=== PATIENT | female | born 1945 | race Caucasian/White ===

== ENCOUNTER 2024-12-30 22:49 | Inpatient (IN) | payer OTHER ==
[~2024-12-30] VITALS: Ht 172.7 cm; Wt 85.5 kg
[~2024-12-30 22:49] MED LIST: AMIO200T33 PO; APIX5TAB PO; ASPI1TAB20 PO; ATOR20TA50 PO; DOXY-286 PO; FURO20TA3 PO; LISI20TA56 PO; METF-1145 PO; METO-289 PO; METO25TA5 PO
[2024-12-30 23:24] LABS: Base Excess -8.9 mmol/L (-2.0-3.0)
[2024-12-30 23:30] VITALS: PULSE 150; RESP 32; O2SAT 96
--- NOTE | 2024-12-30 23:41 | DVH ---
EXAMINATION: AP portable chest radiograph CLINICAL HISTORY: Shortness of breath COMPARISON: None available FINDINGS: Interstitial prominence. Enlarged cardiac silhouette. Bibasilar hazy opacities with blunting of the c ostophrenic angles. No definite pneumothorax. IMPRESSION: CHF type pattern with small bilateral pleural effusions and associated atelectasis. Correlate to excl ude concomitant infection.
[2024-12-30] MEDS: FUROSEMIDE 40 MG/4 ML VIAL IV ONE (23:56)
[2024-12-30] MEDS: METOPROLOL TARTRATE 1MG/1ML-5ML VIAL IV ONE (23:57)
[2024-12-31] VITALS (14 sets, daily range): BP systolic 94–114; BP diastolic 40–70; PULSE 68–143; RESP 16–22; TEMP 97.1–97.4; O2SAT 93–100
[2024-12-31 00:04] LABS: Basophils # (auto) 0.1 10 ^3/uL (0-0.2); Basophils % (auto) 0.6 % (0.0-2.0); Eosinophils # (auto) 0.1 10 ^3/uL (0-0.8); Hematocrit 38.4 % (36.0-46.0); Hemoglobin 11.9 g/dL (12.2-16.2); Lymphocytes # (auto) 2.3 10 ^3/uL (0.4-5.4); Lymphocytes % (auto) 25.3 % (10.0-50.0); Mean Corpuscular Hemoglobin 27.1 pg (28.0-32.0); Mean Corpuscular Hgb Conc. 31.1 g/dL (32.0-36.0); Mean Corpuscular Volume 87.3 fL (80.0-100.0); Monocytes # (auto) 0.6 10 ^3/uL (0-1.3); Monocytes % (auto) 6.8 % (0.0-12.0); Neutrophils # (auto) 6.1 10 ^3/uL (1.6-8.6); Neutrophils % (auto) 66.3 % (37.0-80.0); Nucleated Red Blood Cells % 0.2 %; Platelet Count (auto) 272 10^3/uL (140-450); Red Cell Distribution Width 16.9 % (11.8-14.3); White Blood Cell 9.3 10^3/uL (4.4-10.8)
[2024-12-31 00:24] LABS: Alanine Aminotransferase 16 U/L (7-40); Albumin 4.5 g/dL (3.2-4.8); Anion Gap 14 (5-15); Aspartate Aminotransferase 19 U/L (13-40); BUN/Creatinine Ratio 21.6 (10.0-20.0); Calcium 9.8 mg/dL (8.7-10.4); Chloride 106 mmol/L (98-107); Potassium 3.9 mmol/L (3.5-5.1); Sodium 139 mmol/L (136-145); Total Protein 7.4 g/dL (5.7-8.2)
--- NOTE | 2024-12-31 00:24 | ED.PDOC ---
SOB-HPI HPI Comments 79-year-old female who came to ER via EMS due to shortness of breath. Patient does have hypertension, diabetes, dyslipidemia, AFib, congestive heart failure. Patient has not been taking her Lasix for the past 2 days. Patient has been feeling short of breath for a week, which progressively worsened today associate d with chest discomfort, generalized weakness, and by pedal edema. Patient saturating on 96% on room air, with a blood sugar of 234. Chief Complaint: Shortness of Breath Time Seen by MD: 00:22 Primary Care Provider: Torrey Harper notes: Nurses Notes Information Source: Patient, Emergency Med Personnel Mode of Arrival: EMS Severity: Moderate Timing: Days Duration: Intermittent Context: At Rest, With Light Exertion History of: CHF Prehospital treatment: Oxygen Review of Systems REVIEW OF SYSTEMS: No fever, no chills, or fatigue HEENT: No sore throat, no earache, no congestion, no neck pain. Cardiac: (+) chest pain. No palpitations. Lungs: (+) shortness of breath, no cough. GI: No nausea, no vomiting, no diarrhea, no constipation, no abdominal pain : No dysuria, frequency, or urgency. No hematuria. Musculoskeletal: No joint pain , no joint swelling, no extremity edema. Skin: No rash, no itching. Neuro: No headache, no dizziness, (+) weakness Vital Signs Vital Signs Date Time Temp Pulse Resp B/P (MAP) Pulse Ox O2 Delivery O2 Flow Rate FiO2 12/31/24 00:24 172 12/30/24 23:57 130/79 12/30/24 22:56 98.6 16 96 98.6 Physical Exam General: Awake, alert and oriented. No acute distress. Skin: Skin in warm, dry and intact. Appropriate color for ethnicity. Nailbeds pink with no cyanosis. HEENT: The head is normocephalic and atraumatic. Conjunctivae are clear without exudates or hemorrhage. Sclera is non-icteric. EOM are intact. No signs of nystagmus. Eyelids are normal in appearance without swelling or lesions. Oral mucosa is pink and moist Neck: The neck is supple with normal range of motion. No JVD. Cardiac: Heart rate and rhythm are normal. No murmurs, gallops, or rubs are auscultated. Respiratory: No signs of respiratory distress. Lung sounds are clear in all lobes bilaterally without rales, ronchi, or wheezes. Abdominal: Abdomen is soft, non-tender without distention. Bowel sounds are present and normoactive in all four quadrants. Extremities: Upper and lower extremities are atraumatic in appearance without deformity or edema. Neurological: The patient is awake, alert and oriented to person, place, and time with normal speech. Speech is clear. There is no facial asymmetry. Psychiatric: Appropriate mood and affect. Good judgement and insight. No visual or auditory hallucinations. Past Medical History PAST MEDICAL HISTORY: AFIB, CHF, DM, High Lipids, HTN Surgical History: Denies all surgeries REMODELER History: Denies all REMODELER Hx Family History Family History: Reviewed,noncontributory to illness Social History Smoker: Non-Smoker Alcohol: Denies ETOH Use Drugs: Denies Drug Use Lives In: Home EKG EKG : Pulse Rate (adult): 172 Block: LBBB Comments Wide QRS tachycardia, Ventricular Premature Complex Was a procedure done? Was a procedure done?: No Differential Dx Differential Diagnosis: Asthma, Bronchitis, CHF, COPD, Myocardial infarction, Panic Attack, Pneumonia, Respiratory Distress X-Ray, Labs, Meds, VS Vital Signs Date Time Temp Pulse Resp B/P (MAP) Pulse Ox O2 Delivery O2 Flow Rate FiO2 12/31/24 00:24 172 12/31/24 00:09 145 12/30/24 23:57 181 130/79 12/30/24 23:56 130/79 12/30/24 23:06 172 12/30/24 22:56 98.6 165 16 137/90 (106) 96 98.6 Lab Test 12/31/24 01:30 12/31/24 00:42 12/30/24 23:42 12/30/24 23:11 Range/Units Lactic Acid Level Pending 5.1 *H 0.4-2.0 mmol/L Troponin I High Sensitivity 51 *H 48 *H </=34 ng/L White Blood Count 9.3 4.4-10.8 10^3/uL Red Blood Count 4.40 4.0-5.20 10^6/uL Hemoglobin 11.9 L 12.2-16.2 g/dL Hematocrit 38.4 36.0-46.0 % Mean Corpuscular Volume 87.3 80.0-100.0 fL Mean Corpuscular Hemoglobin 27.1 L 28.0-32.0 pg Mean Corpuscular Hemoglobin Concent 31.1 L 32.0-36.0 g/dL Red Cell Distribution Width 16.9 H 11.8-14.3 % Platelet Count 272 140-450 10^3/uL Mean Platelet Volume 9.4 6.9-10.8 fL Neutrophils (%) (Auto) 66.3 37.0-80.0 % Lymphocytes (%) (Auto) 25.3 10.0-50.0 % Monocytes (%) (Auto) 6.8 0.0-12.0 % Eosinophils (%) (Auto) 1.0 0.0-7.0 % Basophils (%) (Auto) 0.6 0.0-2.0 % Neutrophils # (Auto) 6.1 1.6-8.6 10 ^3/uL Lymphocytes # (Auto) 2.3 0.4-5.4 10 ^3/uL Monocytes # (Auto) 0.6 0-1.3 10 ^3/uL Eosinophils # (Auto) 0.1 0-0.8 10 ^3/uL Basophils # (Auto) 0.1 0-0.2 10 ^3/uL Nucleated Red Blood Cells 0.2 % D-Dimer, Quantitative 3.05 H 0.0-0.49 mg/L FEU Sodium Level 139 136-145 mmol/L Potassium Level 3.9 3.5-5.1 mmol/L Chloride Level 106 98-107 mmol/L Carbon Dioxide Level 19 L 20-31 mmol/L Anion Gap 14 5-15 Blood Urea Nitrogen 30 H 9-23 mg/dL Creatinine 1.39 H 0.550-1.02 mg/dL Glomerular Filtration Rate Calc 39 >90 mL/min BUN/Creatinine Ratio 21.6 H 10.0-20.0 Serum Glucose 306 H 74-106 mg/dL Calcium Level 9.8 8.7-10.4 mg/dL Total Bilirubin 1.0 0.2-1.0 mg/dL Aspartate Amino Transferase (AST) 19 13-40 U/L Alanine Aminotransferase (ALT) 16 7-40 U/L Alkaline Phosphatase 129 H 46-116 U/L B-Type Natriuretic Peptide 921.72 0-100 pg/mL Total Protein 7.4 5.7-8.2 g/dL Albumin 4.5 3.2-4.8 g/dL Blood Gas Specimen Type Arterial Blood Gas Sample Site Right brachial Blood Gas Patient Temperature 37.0 Arterial Blood Date Drawn [id number] Arterial Blood pH 7.415 7.350-7.450 Arterial Blood Partial Pressure CO2 21.9 L 32.0-45.0 mmHg Arterial Blood Partial Pressure O2 68.4 L 83.0-108.0 mmHg Arterial Blood HCO3 13.7 L 21.0-28.0 mmol/L Arterial Blood Oxygen Saturation 91.7 L 94.0-98.0 % Arterial Blood Base Excess -8.9 L -2.0-3.0 mmol/L Arterial Blood Oxyhemoglobin 90.7 L 94.0-98.0 % Arterial Blood Carboxyhemoglobin 0.6 0.5-1.5 % Arterial Blood Methemoglobin 0.5 0.0-1.5 % Coleman Test N/a Blood Gas Total Hemoglobin 12.30 12.0-16.0 g/dL Blood Gas Modality Room air FiO2 % 21.0 Current Medications Medications (Trade) Dose Ordered Sig/Eduardo Route Start Time Stop Time Status Last Admin Furosemide (Lasix Injection) 40 mg ONCE ONCE IV 12/30/24 23:30 12/30/24 23:31 DC 12/30/24 23:56 Metoprolol Tartrate (Lopressor) 5 mg ONCE ONCE IV 12/30/24 23:30 12/30/24 23:31 DC 12/30/24 23:57 Amiodarone HCl 100 ml @ 600 mls/hr ONCE ONCE IV 12/31/24 00:45 12/31/24 00:54 DC 12/31/24 00:41 Time of 1ST Reevaluation: 00:10 Reevaluation 1ST: Unchanged Patient Education/Counseling: Diagnosis, Treatment, Other (Need for admission) Family Education/Counseling: Diagnosis, Treatment, Other (Need for admission) Departure 1 Departure Time of Disposition: 02:10 Impression: Primary Impression: CHF exacerbation Additional Impression: Atrial fibrillation with RVR Disposition: ADMITTED INPATIENT Condition: Serious Comments 79-year-old female who presents to the emergency department with shortness of breath. She was found to be in AFib with RVR and a rate of 160s to 170s. Heart rate improved after amiodarone bolus and she was started on a drip. She was given IV Lasix. Patient admitted for further treatment, evaluation and monitoring. Extensive evaluation was performed in attempt to identify or rule out: (See differential diagnosis section) The following tests were ordered, and results were reviewed by me and discussed with the patient and family: (See diagnostic results section) The following test were independently interpreted by me: EKG I reviewed and agreed with the following test results read by other providers: Chest x-ray I reviewed the following notes from the pt's past medical encounters: (None available at this time) Additional information was gathered from interviewing the following independent historians: Family members at bedside Discussion of management or test interpretation with external physician/other qualified health sub acute care nurse: N/A Addressed an acute or chronic illness that poses a threat to life or bodily function: AFib with RVR, CHF exacerbation, hypoxemia Decision regarding hospitalization or escalation of hospital level of care: Risk and benefits of admission for further treatment of patient's condition was considered. Due to patient's current clinical condition, high risk of decline and poor outcome if discharged and need for further inpatient management and monitoring, patient will be admitted to the hospital. Drug therapy requiring intensive monitoring for toxicity: IV amiodarone, IV furosemide Parenteral controlled substances: N/A Decision regarding elective major surgery with identified patient or procedure risk factors: N/A Decision regarding emergency major surgery: N/A Decision not to resuscitate or to de-escalate care because of poor prognosis: N/A Diagnosis or treatment significantly limited by social determinants of health: N/A Critical Care Note Critical Care Time?: Yes (35 min-critical care time only) Critical care comment: Shortness of breath Stability Stability form required: No Heart Score Heart Score: Heart Score Response (Comments) Value History Moderate Suspicious [address]-Deviation 2 Age >65 2 Risk Factors >3 or Hx ASHD 2 Troponin Normal limit 0 Total 7 I personally scribed for EUGENIO VALADEZ MD ([email or web address]) on 12/31/24 at 00:24. Electronically submitted by Boubacar Varghese ([email or web address]). EUGENIO VALADEZ MD Dec 31, 2024 00:24
[2024-12-31 00:30] LABS: Lactic Acid w/Reflex 5.1 mmol/L (0.4-2.0)
[2024-12-31 00:35] LABS: Alkaline Phosphatase 129 U/L (46-116); Blood Urea Nitrogen 30 mg/dL (9-23); Carbon Dioxide 19 mmol/L (20-31); Glucose 306 mg/dL (74-106)
[2024-12-31] MEDS: AMIODARONE BOLUS KIT 100 ML IV ONE (00:41)
[2024-12-31] MEDS: AMIODARONE 360mg/200mL PREMIX 200 ML IV ONE (01:27)
[2024-12-31] MEDS ORDERED: DOCUSATE SOD 100 MG CAP PO PRN (01:30)
[2024-12-31] MEDS ORDERED: HYDROcodone-ACET 5/325MG TAB PO PRN (01:30)
[2024-12-31] MEDS ORDERED: ACETAMINOPHEN 325 MG TAB PO PRN (01:30)
[2024-12-31] MEDS ORDERED: DEXTROSE (50%) 50ML SYRG IV PRN (01:30)
[2024-12-31] MEDS: ASPirin 81 mg TAB PO ONE (03:36)
[2024-12-31] MEDS: ACCU-CHEK COMFORT CURVE STRIP VI SCH (03:42)
[2024-12-31] MEDS: InsuLIN REG 1unit/0.01ml Soln (100units/ml) SC SCH (03:45)
[2024-12-31] MEDS ORDERED: MORPHINE SULFATE INJ 2 MG/ml SYRG IV PRN (04:15)
[2024-12-31] MEDS ORDERED: NITROGLYCERIN 0.4 MG SL TAB SL PRN (04:15)
[2024-12-31 04:19] LABS: Rapid Influenza A Negative (Negative); Rapid Influenza B Negative (Negative)
[2024-12-31 04:20] LABS: COVID19 ANTIGEN SOFIA FIA NEGATIVE (NEGATIVE)
--- NOTE | 2024-12-31 04:24 | DVHHP2 ---
History of Present Illness Reason for Visit: Acute exacerbation of congestive heart failure History of Present Illness Patient is a 79-year-old female with past medical history of AFib, CHF, DM, hyperlipidemia, and hypertension who presented to [facility] ED with complaint of shortness of breaths. Patient reports she has been feeling generalized weakness, chest discomfort, pedal edema, increased work of breathing, getting worse today that prompted this visit. Patient was seen and evaluated in the ED, laboratory data shows WBC 9.3, platelets 272, sodium 139, potassium 3.9, BUN 30, creatinine 1.39, GFR 39, glucose 306, troponin 48, BNP 921.72. Chest x-ray revealing CHF type pattern with small bilateral pleural effusions and associated atelectasis, correlate to exclude concomitant infection. Patient was started on IV Lasix, please see medication orders section in the computer. On my assessment, patient denied chest pain, no headache, no dizziness, currently on oxygen, no diarrhea, no nausea, no vomiting, no fever, no chills. Patient was admitted for further evaluation and medical management. Past Medical History AFIB, CHF, DM, High Lipids, HTN Past Surgical History Denies all surgeries Family History Reviewed, noncontributory to the management of this case. Past Social History The patient lives at home, denies smoking, alcohol or illicit drugs abuse. Review of Systems Constitutional: Yes: Weakness; No: Fever, Chills, Sweats, Malaise, Other Eyes: No: Pain, Vision change, Conjunctivae inflammation, Eyelid inflammation, Other, Redness ENT: No: Ear pain, Ear discharge, Nose pain, Nose discharge, Nose congestion, Mouth pain, Mouth swelling, Throat pain, Throat swelling, Other Respiratory: Shortness of breath; No: Cough, Dry, SOB with excertion, Wheezing, Hemoptysis, Pleuritic Pain, Sputum, Wheezing, Other Cardiovascular: Chest Pain; No: Palpitations, Orthopnea, Paroxysmal Noc. Dyspnea, Edema, Lt Headedness, Other Gastrointestinal: No: Nausea, Vomiting, Abdominal Pain, Diarrhea, Constipation, Melena, Hematochezia, Other Genitourinary: No Dysuria, No Frequency, No Incontinence, No Hematuria, No Retention, No Other Musculoskeletal: No: other, neck pain, shoulder pain, arm pain, back pain, hand pain, leg pain, foot pain Skin: No: Rash, Lesions, Jaundice, Bruising, Other Neurological: No: Weakness, Numbness, Incoordination, Change in speech, Confusion, Seizures, Other Allergies: Coded Allergies: NO KNOWN ALLERGIES (Unverified , 09/11/22) Medications Current Medications Medications Dose Ordered Sig/Eduardo Route Start Time Stop Time Status Last Admin Dose Admin Carvedilol 12.5 mg Q12HR PO 12/31/24 10:00 Furosemide 40 mg DAILY IV 12/31/24 10:00 Aspirin 81 mg DAILY PO 01/01/25 10:00 Diagnostic Test (Pha) 1 strip IQ4HR 12/31/24 04:00 12/31/24 03:42 1 STRIP Insulin Human Regular IQ4HR SC 12/31/24 04:00 12/31/24 03:45 9 UNITS Dextrose 50 ml UD PRN IV 12/31/24 01:30 Sodium Chloride 10 ml Q8HR IV 12/31/24 06:00 Acetaminophen/ Hydrocodone Bitart 1 tab Q4HP PRN PO 12/31/24 01:30 Ondansetron HCl 4 mg Q4HP PRN IV 12/31/24 01:30 Docusate Sodium 100 mg BIDPRN PRN PO 12/31/24 01:30 Acetaminophen 650 mg Q6HP PRN PO 12/31/24 01:30 Atorvastatin Calcium 20 mg HS PO 12/31/24 22:00 Exam Vital Signs Vital Signs Date Time Temp Pulse Resp B/P (MAP) Pulse Ox O2 Delivery O2 Flow Rate FiO2 12/31/24 03:03 118 12/31/24 02:30 24 106/55 (72) 99 12/30/24 23:30 Nasal Cannula* 2 28 12/30/24 23:30 98.8 98.8 General Appearance: Alert, Oriented X3, Cooperative, No acute distress HEENT: Atraumatic, PERRLA, EOMI, Mucous membr. moist/pink Respiratory: Normal air movement, Other (Congestion) Cardiovascular: Regular rate, Normal S1, Normal S2, No murmurs Abdominal: Normal bowel sounds, Soft, No tenderness, No hepatospenomegaly, No masses Extremities: No clubbing, No cyanosis, Normal pulses, No tenderness/swelling, Other (Lower extremity edema) Skin: No rashes, No breakdown, No significant lesion Neuro: Normal speech, Normal tone, Sensation intact, Cranial nerves 3-12 NL, Reflexes 2+, Other (Generalized weakness) Psych/Mental Status: Mental status NL, Mood NL Labs/Xrays Labs Test 12/31/24 03:40 12/31/24 02:41 12/31/24 01:30 12/31/24 01:00 Range/Units POC Glucose 293 H 70-106 mg/dl Troponin I High Sensitivity 74 *H </=34 ng/L Lactic Acid Level 4.1 *H 0.4-2.0 mmol/L Test 12/30/24 23:42 12/30/24 23:11 Range/Units White Blood Count 9.3 4.4-10.8 10^3/uL Red Blood Count 4.40 4.0-5.20 10^6/uL Hemoglobin 11.9 L 12.2-16.2 g/dL Hematocrit 38.4 36.0-46.0 % Mean Corpuscular Volume 87.3 80.0-100.0 fL Mean Corpuscular Hemoglobin 27.1 L 28.0-32.0 pg Mean Corpuscular Hemoglobin Concent 31.1 L 32.0-36.0 g/dL Red Cell Distribution Width 16.9 H 11.8-14.3 % Platelet Count 272 140-450 10^3/uL Mean Platelet Volume 9.4 6.9-10.8 fL Neutrophils (%) (Auto) 66.3 37.0-80.0 % Lymphocytes (%) (Auto) 25.3 10.0-50.0 % Monocytes (%) (Auto) 6.8 0.0-12.0 % Eosinophils (%) (Auto) 1.0 0.0-7.0 % Basophils (%) (Auto) 0.6 0.0-2.0 % Neutrophils # (Auto) 6.1 1.6-8.6 10 ^3/uL Lymphocytes # (Auto) 2.3 0.4-5.4 10 ^3/uL Monocytes # (Auto) 0.6 0-1.3 10 ^3/uL Eosinophils # (Auto) 0.1 0-0.8 10 ^3/uL Basophils # (Auto) 0.1 0-0.2 10 ^3/uL Nucleated Red Blood Cells 0.2 % D-Dimer, Quantitative 3.05 H 0.0-0.49 mg/L FEU Sodium Level 139 136-145 mmol/L Potassium Level 3.9 3.5-5.1 mmol/L Chloride Level 106 98-107 mmol/L Carbon Dioxide Level 19 L 20-31 mmol/L Anion Gap 14 5-15 Blood Urea Nitrogen 30 H 9-23 mg/dL Creatinine 1.39 H 0.550-1.02 mg/dL Glomerular Filtration Rate Calc 39 >90 mL/min BUN/Creatinine Ratio 21.6 H 10.0-20.0 Serum Glucose 306 H 74-106 mg/dL Calcium Level 9.8 8.7-10.4 mg/dL Total Bilirubin 1.0 0.2-1.0 mg/dL Aspartate Amino Transferase (AST) 19 13-40 U/L Alanine Aminotransferase (ALT) 16 7-40 U/L Alkaline Phosphatase 129 H 46-116 U/L B-Type Natriuretic Peptide 921.72 0-100 pg/mL Total Protein 7.4 5.7-8.2 g/dL Albumin 4.5 3.2-4.8 g/dL Blood Gas Specimen Type Arterial Blood Gas Sample Site Right brachial Blood Gas Patient Temperature 37.0 Arterial Blood Date Drawn [id number] Arterial Blood pH 7.415 7.350-7.450 Arterial Blood Partial Pressure CO2 21.9 L 32.0-45.0 mmHg Arterial Blood Partial Pressure O2 68.4 L 83.0-108.0 mmHg Arterial Blood HCO3 13.7 L 21.0-28.0 mmol/L Arterial Blood Oxygen Saturation 91.7 L 94.0-98.0 % Arterial Blood Base Excess -8.9 L -2.0-3.0 mmol/L Arterial Blood Oxyhemoglobin 90.7 L 94.0-98.0 % Arterial Blood Carboxyhemoglobin 0.6 0.5-1.5 % Arterial Blood Methemoglobin 0.5 0.0-1.5 % Coleman Test N/a Blood Gas Total Hemoglobin 12.30 12.0-16.0 g/dL Blood Gas Modality Room air FiO2 % 21.0 PATIENT: MARCELLO FERMINIAACCT: [id number] UNIT: [id number] : 1945 LOC: ER ROOM / BED: / AGE / SEX: 79 / F ADM STATUS: REG ER SERVICE [id number] ORDERING PHYSICIAN: EUGENIO VALADEZ MD PROCEDURE(s): CXR1 - CHEST XRAY 1 VIEW REASON: Shortness of breath ORDER NUMBER(s): [id number], ACCESSION NUMBER(s): [id number] EXAMINATION: AP portable chest radiograph CLINICAL HISTORY: Shortness of breath COMPARISON: None available FINDINGS: Interstitial prominence. Enlarged cardiac silhouette. Bibasilar hazy opacities with blunting of the costophrenic angles. No definite pneumothorax. IMPRESSION: CHF type pattern with small bilateral pleural effusions and associated atelectasis. Correlate to exclude concomitant infection. Assessment/Plan Assessment/Plan Acute exacerbation of congestive heart failure Atrial fibrillation with RVR Generalized weakness Diabetes mellitus with hyperglycemia Plan 1. Admit to telemetry unit 2. Breathing treatment 3. Pain control management 4. Management of fluids and electrolytes 5. Consultation for Cardiology 6. Diagnostic tests chest x-ray 7. DVT prophylaxis-on aspirin 8. Repeat labs CBC, CMP in a.m. 9. Continue with current medical management 10. Treatment plan discussed with patient and RN. Patient verbalized understanding. Plan discussed with: Patient, Other (RN) My Orders Orders - IMER JARVIS DNP Procedure Category Date Status Time Complete Blood Count LAB 12/31/24 Logged 04:00 Comprehensive LAB 12/31/24 Logged Metabolic Panel 04:00 Carvedilol Tablet PHA 12/31/24 In Process (Coreg Tablet) 10:00 Furosemide Injection PHA 12/31/24 In Process (Lasix Injection) 10:00 Consistent DIET 12/31/24 Transmitted Carb(Ccho)Diabetes Breakfast Glucose Blood PHA 12/31/24 In Process (Accu-Chek Comfort 04:00 Insulin R (Human) PHA 12/31/24 In Process (Insulin R) 04:00 Dextrose 50% Syringe PHA 12/31/24 In Process 01:30 Allergies SARAI 12/31/24 In Process 01:22 Code Status CODE 12/31/24 Transmitted 01:22 Sodium Chloride Lock PHA 12/31/24 In Process (Saline Lock Ns) 06:00 Oxygen Per Hour RT 12/31/24 Transmitted 01:22 Hydrocodone-Acet PHA 12/31/24 In Process 5/325mg Tab ([place] 01:30 Ondansetron Hcl PHA 12/31/24 In Process (Zofran) 01:30 Docusate Sodium PHA 12/31/24 In Process Capsule (Colace 01:30 Fall Risk Precautions SARAI 12/31/[address] 01:22 Complete Blood Count LAB 01/01/25 Verified 04:00 Comprehensive LAB 01/01/25 Verified Metabolic Panel 04:00 Echo 2d Mode Cardiac US 12/31/24 Logged DOP 01:22 Condition: Serious SARAI 12/31/24 In Process 01:22 Acetaminophen Tablet PHA 12/31/24 In Process (Tylenol Tablet) 01:30 Sequential SARAI 12/31/24 In Process Compression Device * Cardiology Consult CONS 12/31/24 Transmitted 01:22 Atorvastatin (Lipitor) PHA 12/31/24 In Process 22:00 Aspirin Tablet PHA 01/01/25 In Process 10:00 Admit ADMIT 12/31/24 Verified 04:10 Nitroglycerin [facility] 12/31/24 Verified Sublingual (Ntrostat 04:15 Morphine Sulfate [facility] 12/31/24 Verified Injection 04:15 Stat Ekg For Chest [facility] 12/31/24 Verified Pain 04:10 Notify Md Of Changes [facility] 12/31/24 Verified From Base 04:10 Wire Stitcher For [facility] 12/31/24 Verified 24 Hours 04:10 Emergency Dysrhythmia [facility] 12/31/24 Verified Protocol 04:10 Rhythm Strips Once [facility] 12/31/24 Verified Every Shift 04:10 Oxygen By Nasal RT 12/31/24 Verified Cannula 04:10 Problem List: (1) Acute exacerbation of congestive heart failure (2) Atrial fibrillation with RVR (3) Generalized weakness (4) Diabetes mellitus with hyperglycemia Date of Service: Dec 31, 2024 Billing Provider: IMER JARVIS DNP Common Visit Codes: 15870-[id number] INP/OBS CARE (HIGH) IMER JARVIS DNP Dec 31, 2024 04:24
[2024-12-31 05:28] LABS: Basophils # (auto) 0 10 ^3/uL (0-0.2); Basophils % (auto) 0.2 % (0.0-2.0); Eosinophils # (auto) 0 10 ^3/uL (0-0.8); Hematocrit 37.2 % (36.0-46.0); Hemoglobin 11.8 g/dL (12.2-16.2); Lymphocytes # (auto) 0.7 10 ^3/uL (0.4-5.4); Lymphocytes % (auto) 6.1 % (10.0-50.0); Mean Corpuscular Hemoglobin 27.8 pg (28.0-32.0); Mean Corpuscular Hgb Conc. 31.8 g/dL (32.0-36.0); Mean Corpuscular Volume 87.3 fL (80.0-100.0); Monocytes # (auto) 0.5 10 ^3/uL (0-1.3); Monocytes % (auto) 4.9 % (0.0-12.0); Neutrophils # (auto) 9.8 10 ^3/uL (1.6-8.6); Neutrophils % (auto) 88.8 % (37.0-80.0); Nucleated Red Blood Cells % 0.1 %; Platelet Count (auto) 251 10^3/uL (140-450); Red Blood Cells 4.26 10^6/uL (4.0-5.20)
[2024-12-31] MEDS: dilTIAZem 25 MG/5 ML VIAL IV ONE (05:35)
[2024-12-31 05:37] LABS: Alanine Aminotransferase 35 U/L (7-40); Albumin 4.5 g/dL (3.2-4.8); Anion Gap 15 (5-15); BUN/Creatinine Ratio 18.7 (10.0-20.0); Bilirubin, Total 0.9 mg/dL (0.2-1.0); Calcium 9.6 mg/dL (8.7-10.4); Chloride 104 mmol/L (98-107); Potassium 4.3 mmol/L (3.5-5.1); Sodium 136 mmol/L (136-145); Total Protein 7.3 g/dL (5.7-8.2)
[2024-12-31 05:44] LABS: Alkaline Phosphatase 132 U/L (46-116); Aspartate Aminotransferase 51 U/L (13-40); Blood Urea Nitrogen 29 mg/dL (9-23); Carbon Dioxide 17 mmol/L (20-31); Glucose 309 mg/dL (74-106)
[2024-12-31] MEDS: AMIODARONE 360mg/200mL PREMIX 200 ML IV SCH ×2 (06:32→14:30)
[2024-12-31] MEDS: SODIUM CHLOR 0.9% PF (SALINE LOCK) 10ML VIAL/SYR IV SCH (06:33)
[2024-12-31] MEDS: CARVEDILOL 12.5 MG TAB PO SCH (09:46)
[2024-12-31] MEDS: FUROSEMIDE 40 MG/4 ML VIAL IV SCH ×2 (09:47→18:04)
--- NOTE | 2024-12-31 11:34 | DVHINCON2 ---
Date Seen: Dec 31, 2024 Referring Physician Dagoberto Reason for Consultation CHF History of Present Illness 79-year-old female with PMH for atrial fibrillation/flutter on Eliquis, CHF, dm, HLD, HTN presents to the hospital with worsening shortness of breath and lower extremity edema. Patient also been having some palpitations and chest tightness. Upon evaluation in the ER patient noted to have significantly elevated heart rate, noted to be in atrial flutter on 118 beats per minute. Creatinine 1.39. Troponin trending 48 51, 74. BNP 921. CXR showing small bilateral pleural effusions, congestion. Of note patient does have history of BUBBA cardioversion in 2021 for atrial fib and flutter and was plan for follow up at [place] for possible ablation. Past Medical History As stated above Past Surgical History As stated above Family History: FH: cancer G8 FATHER FH: diabetes mellitus G8 MOTHER FH: heart failure G8 MOTHER Social History Denies alcohol, tobacco, or illicit drug use Allergies: Coded Allergies: NO KNOWN ALLERGIES (Unverified , 09/11/22) Home Meds Active Scripts Doxycycline Hyclate (DOXYCYCLINE HYCLATE) 100 Mg Tab, 1 TAB PO BID, #14 TAB Prov:OMAR CONTEH MD 09/14/22 Reported Medications Aspirin (Aspir-81) 81 Mg Tab, 1 TAB PO DAILY, #30 TAB 5 Refills 09/12/22 Apixaban Base (ELIQUIS) 5 Mg Tab, 5 MG PO BID, TAB 09/12/22 Metoprolol Tartrate (Metoprolol Tartrate) 25 Mg Tab, 1 TAB PO BID, #60 TAB 5 Refills 09/12/22 Metformin Hydrochloride (Metformin Hcl Er) 500 Mg Tab, 1 TAB PO BID, #180 TAB 3 Refills 09/12/22 Amiodarone Hcl (Amiodarone Hcl) 200 Mg Tab, 200 MG PO BID, TAB 09/12/22 Current Medications Current Medications Medications (Trade) Dose Ordered Sig/Eduardo Route PRN Reason Start Time Stop Time Status Last Admin Carvedilol (Coreg Tablet) 12.5 mg Q12HR PO 12/31/24 10:00 12/31/24 09:46 Furosemide (Lasix Injection) 40 mg DAILY IV 12/31/24 10:00 12/31/24 09:47 Aspirin 81 mg DAILY PO 01/01/25 10:00 Diagnostic Test (Pha) (Accu-Chek Comfort Curve T) 1 strip IQ4HR 12/31/24 04:00 12/31/24 08:01 Insulin Human Regular (InsuLIN R) IQ4HR SC 12/31/24 04:00 12/31/24 08:01 Dextrose 50 ml UD PRN IV Blood Sugar LESS THAN 60 12/31/24 01:30 Sodium Chloride (Saline Lock Ns) 10 ml Q8HR IV 12/31/24 06:00 12/31/24 06:33 Acetaminophen/ Hydrocodone Bitart ([place] 5/325MG Tab) 1 tab Q4HP PRN PO MODERATE PAIN (4-6 PAIN SCALE) 12/31/24 01:30 Ondansetron HCl (Zofran) 4 mg Q4HP PRN IV NAUSEA / VOMITING 12/31/24 01:30 Docusate Sodium (Colace Capsule) 100 mg BIDPRN PRN PO FOR CONSTIPATION 12/31/24 01:30 Acetaminophen (Tylenol Tablet) 650 mg Q6HP PRN PO PAIN SCALE 1-3 OR TEMP>100.4 12/31/24 01:30 Atorvastatin Calcium (Lipitor) 20 mg HS PO 12/31/24 22:00 Nitroglycerin (Ntrostat Sublingual) 0.4 mg Q5MINP PRN SL FOR CHEST PAIN 12/31/24 04:15 Morphine Sulfate 2 mg Q30M PRN IV FOR CHEST PAIN 12/31/24 04:15 Review of Systems Constitutional: No: Fever, Chills, Sweats, Weakness, , Other positive: Malaise Eyes: No: Pain, Vision change, Conjunctivae inflammation, Eyelid inflammation, Other, Redness ENT: No: Ear pain, Ear discharge, Nose pain, Nose discharge, Nose congestion, Mouth pain, Mouth swelling, Throat pain, Throat swelling, Other Respiratory: No: Cough, Dry, Wheezing, Hemoptysis, Pleuritic Pain, Sputum, Wheezing, Other positive: Shortness of breath, SOB with exertion, Cardiovascular: ; No: Chest Pain , Paroxysmal Noc. Dyspnea, , Lt Headedness, Other positive: Palpitations, edema Gastrointestinal: No: Nausea, Vomiting, Abdominal Pain, Diarrhea, Constipation, Melena, Hematochezia, Other Genitourinary: No Dysuria, No Frequency, No Incontinence, No Hematuria, No Retention, No Other Musculoskeletal: neck pain; No: other, shoulder pain, arm pain, back pain, hand pain, leg pain, foot pain Skin: No: Rash, Lesions, Jaundice, Bruising, Other Neurological: Other (Dizziness, headache.); No: Weakness, Numbness, Incoordination, Change in speech, Confusion, Seizures Vital Signs Vital Signs Date Time Temp Pulse Resp B/P (MAP) Pulse Ox O2 Delivery O2 Flow Rate FiO2 12/31/24 09:47 122/83 12/31/24 09:46 129 12/31/24 07:30 Nasal Cannula* 4 36 12/31/24 06:03 97.4 22 97 97.4 Physical Exam General appearance: Patient is well-developed, well-nourished, in acute distress. HEENT: Exam shows: Normocephalic, atraumatic, PERRLA, EOMI Neck: Supple, no bruits Chest: Equal chest excursion bilaterally. Breath sounds crackles. Heart: Rhythm: Irregular rate; no murmur or gallop Abdomen: Exam shows: Soft, nontender, nondistended Musculoskeletal: No clubbing, no cyanosis, trace lower extremity edema Dermatology: Skin warm, moist. Neurological: Exam shows: Alert and oriented x4, normal speech Available prior records, labs, EKG, rhythm strips reviewed and interpreted Labs/Diagnostic Data Labs Test 12/31/24 07:52 12/31/24 04:55 12/31/24 02:41 12/31/24 01:30 Range/Units POC Glucose 247 H 70-106 mg/dl White Blood Count 11.0 H 4.4-10.8 10^3/uL Red Blood Count 4.26 4.0-5.20 10^6/uL Hemoglobin 11.8 L 12.2-16.2 g/dL Hematocrit 37.2 36.0-46.0 % Mean Corpuscular Volume 87.3 80.0-100.0 fL Mean Corpuscular Hemoglobin 27.8 L 28.0-32.0 pg Mean Corpuscular Hemoglobin Concent 31.8 L 32.0-36.0 g/dL Red Cell Distribution Width 17.0 H 11.8-14.3 % Platelet Count 251 140-450 10^3/uL Mean Platelet Volume 9.3 6.9-10.8 fL Neutrophils (%) (Auto) 88.8 H 37.0-80.0 % Lymphocytes (%) (Auto) 6.1 L 10.0-50.0 % Monocytes (%) (Auto) 4.9 0.0-12.0 % Eosinophils (%) (Auto) 0.0 0.0-7.0 % Basophils (%) (Auto) 0.2 0.0-2.0 % Neutrophils # (Auto) 9.8 H 1.6-8.6 10 ^3/uL Lymphocytes # (Auto) 0.7 0.4-5.4 10 ^3/uL Monocytes # (Auto) 0.5 0-1.3 10 ^3/uL Eosinophils # (Auto) 0 0-0.8 10 ^3/uL Basophils # (Auto) 0 0-0.2 10 ^3/uL Nucleated Red Blood Cells 0.1 % Sodium Level 136 136-145 mmol/L Potassium Level 4.3 3.5-5.1 mmol/L Chloride Level 104 98-107 mmol/L Carbon Dioxide Level 17 L 20-31 mmol/L Anion Gap 15 5-15 Blood Urea Nitrogen 29 H 9-23 mg/dL Creatinine 1.55 H 0.550-1.02 mg/dL Glomerular Filtration Rate Calc 34 >90 mL/min BUN/Creatinine Ratio 18.7 10.0-20.0 Serum Glucose 309 H 74-106 mg/dL Calcium Level 9.6 8.7-10.4 mg/dL Total Bilirubin 0.9 0.2-1.0 mg/dL Aspartate Amino Transferase (AST) 51 H 13-40 U/L Alanine Aminotransferase (ALT) 35 7-40 U/L Alkaline Phosphatase 132 H 46-116 U/L Total Protein 7.3 5.7-8.2 g/dL Albumin 4.5 3.2-4.8 g/dL Troponin I High Sensitivity 74 *H </=34 ng/L Lactic Acid Level 4.1 *H 0.4-2.0 mmol/L Test 12/31/24 01:00 12/30/24 23:42 12/30/24 23:11 Range/Units Influenza Type A Antigen Negative Negative Influenza Type B Antigen Negative Negative SARS-CoV-2 Antigen (Rapid) Negative NEGATIVE D-Dimer, Quantitative 3.05 H 0.0-0.49 mg/L FEU B-Type Natriuretic Peptide 921.72 0-100 pg/mL Blood Gas Specimen Type Arterial Blood Gas Sample Site Right brachial Blood Gas Patient Temperature 37.0 Arterial Blood Date Drawn [id number] Arterial Blood pH 7.415 7.350-7.450 Arterial Blood Partial Pressure CO2 21.9 L 32.0-45.0 mmHg Arterial Blood Partial Pressure O2 68.4 L 83.0-108.0 mmHg Arterial Blood HCO3 13.7 L 21.0-28.0 mmol/L Arterial Blood Oxygen Saturation 91.7 L 94.0-98.0 % Arterial Blood Base Excess -8.9 L -2.0-3.0 mmol/L Arterial Blood Oxyhemoglobin 90.7 L 94.0-98.0 % Arterial Blood Carboxyhemoglobin 0.6 0.5-1.5 % Arterial Blood Methemoglobin 0.5 0.0-1.5 % Coleman Test N/a Blood Gas Total Hemoglobin 12.30 12.0-16.0 g/dL Blood Gas Modality Room air FiO2 % 21.0 Assessment * Acute on chronic HFpEF - follow up echo. Continue diuresing, strict I&Os * Acute hypoxic respiratory failure, CHF exacerbation continue diuresing * Mildly elevated troponins - trending stable. Continue aspirin and statin. Likely demand ischemia in setting of RVR. * Paroxysmal Atrial Fibrillation/Flutter with episode of RVR - amiodarone drip at 1 milligram/minute continuous. Continue metoprolol 25 mg p.o. twice daily. Continue Eliquis for stroke prophylaxis. * HTN - marginal, continue current regimen. Hold for systolic less than 100. * HLD - statin * RASHEL - avoid nephrotoxic agents, continue monitoring with diuresis. Case Discussed with Dr Khan. Heart rate continues to be significantly elevated, restarted on patient's home dose metoprolol. Amiodarone increased to 1 milligram/minute. Continue Eliquis for stroke prophylaxis. Follow up echo. Continue diuresing. If heart rate does not improve we will consider possible BUBBA cardioversion. Critical care, time spent: 48 minutes This medical document was created using an electronic medical record system with voice recognition software and computerized dictation system. Although this document has been carefully reviewed, there might still be some phonetic and typographical errors. Occasional wrong-word or ``sound-alike substitutions may have occurred due to the inherent limitations of voice recognition software. These areas are purely typographical due to imperfections of the software programs and do not reflect any compromise in the patient's medical care. Please read the chart carefully and recognize, using context, where these substitutions have occurred. Thank you for allowing me to participate in the management of this patient. The treatment plan was discussed with and agreed upon by patient/family including requesting consultants and ordering of imaging/procedures. Plan discussed with: Patient NYHA Physical activity limitations: Class4(Severe)discomfort Date of Service: Dec 31, 2024 Billing Provider: PAOLA ALEXANDRE Cardiology Common Codes: [id number] INP/OBS CARE (High), [id number] CARE 30-74 MIN PAOLA ALEXANDRE Dec 31, 2024 11:34
[2024-12-31] MEDS: DIGOXIN (250MCG/ML) 2 ML AMPULE IV ONE (14:00)
[2024-12-31] MEDS: APIXABAN 5 MG TAB PO ONE (15:52)
--- NOTE | 2024-12-31 16:02 | DVHPN2 ---
Subjective Seen and examined at bedside. Family also present at bedside. Patient is on 4-5L nasal liter oxygen. Patient does NOT use home oxygen. In Mild distress. Will increase Lasix dose and add Bronchodilators. Changes from previous H/P or p: No Changes Eyes: No Pain, No Vision change, No Conjunctivae inflammation, No Eyelid inflammation, No Other, No Redness ENT: No Ear pain, No Ear discharge, No Nose pain, No Nose discharge, No Nose congestion, No Mouth pain, No Mouth swelling, No Throat pain, No Throat swelling, No Other Cardiovascular: No Palpitations, No Orthopnea, No Paroxysmal Noc. Dyspnea, No Edema, No Lt Headedness, No Other Respiratory: No Cough, No Dry; Shortness of breath; No SOB with excertion, No Wheezing, No Hemoptysis, No Pleuritic Pain, No Sputum, No Other Gastrointestinal: No Nausea, No Vomiting, No Abdominal Pain, No Diarrhea, No Constipation, No Melena, No Hematochezia, No Other Genitourinary: No Dysuria, No Frequency, No Incontinence, No Hematuria, No Retention, No Other Musculoskeletal: No other, No neck pain, No shoulder pain, No arm pain, No back pain, No hand pain, No leg pain, No foot pain Skin: No Rash, No Lesions, No Jaundice, No Bruising, No Other Objective Vitals Vital Signs Date Time Temp Pulse Resp B/P (MAP) Pulse Ox O2 Delivery O2 Flow Rate FiO2 12/31/24 15:14 129 18 101/70 (80) 99 12/31/24 13:00 97.3 97.3 12/31/24 08:00 Oxymizer 4 N/A Intake/Output Intake and Output 12/31/24 07:00 Intake Total 185 ml Balance 185 ml Intake IV Total 185 ml General Appearance: Alert, Oriented X3, Cooperative, moderate distress HEENT: Atraumatic Lungs: Other (Diminished with few creps) Cardiovascular: Other (Irregular, Tachycardic) Abdomen: Normal bowel sounds, Soft Extremities: Other (Edema) Psych/Mental Status: Mental status NL Medications Current Medications Medications Dose Ordered Sig/Eduardo Route Start Time Stop Time Status Last Admin Dose Admin Furosemide 40 mg DAILY IV 12/31/24 10:00 12/31/24 09:47 40 MG Aspirin 81 mg DAILY PO 01/01/25 10:00 Diagnostic Test (Pha) 1 strip IQ4HR 12/31/24 04:00 12/31/24 12:03 1 STRIP Insulin Human Regular IQ4HR SC 12/31/24 04:00 12/31/24 12:05 3 UNITS Dextrose 50 ml UD PRN IV 12/31/24 01:30 Sodium Chloride 10 ml Q8HR IV 12/31/24 06:00 12/31/24 14:00 10 ML Acetaminophen/ Hydrocodone Bitart 1 tab Q4HP PRN PO 12/31/24 01:30 Ondansetron HCl 4 mg Q4HP PRN IV 12/31/24 01:30 Docusate Sodium 100 mg BIDPRN PRN PO 12/31/24 01:30 Acetaminophen 650 mg Q6HP PRN PO 12/31/24 01:30 Atorvastatin Calcium 20 mg HS PO 12/31/24 22:00 Nitroglycerin 0.4 mg Q5MINP PRN SL 12/31/24 04:15 Morphine Sulfate 2 mg Q30M PRN IV 12/31/24 04:15 Metoprolol Tartrate 25 mg BID PO 12/31/24 22:00 Apixaban 5 mg BID PO 12/31/24 22:00 UNV Laboratory Results Laboratory Tests 12/31/24 04:55 Chemistry Test 12/30/24 23:42 12/31/24 04:55 Albumin 4.5 g/dL (3.2-4.8) 4.5 g/dL (3.2-4.8) Calcium Level 9.8 mg/dL (8.7-10.4) 9.6 mg/dL (8.7-10.4) Total Protein 7.4 g/dL (5.7-8.2) 7.3 g/dL (5.7-8.2) Coagulation Test 12/30/24 23:42 D-Dimer, Quantitative 3.05 mg/L FEU (0.0-0.49) H Cardiac Markers Test 12/30/24 23:42 B-Type Natriuretic Peptide 921.72 pg/mL (0-100) LFT Test 12/30/24 23:42 12/31/24 04:55 Alanine Aminotransferase (ALT) 16 U/L (7-40) 35 U/L (7-40) Alkaline Phosphatase 129 U/L (46-116) H 132 U/L (46-116) H Aspartate Amino Transferase (AST) 19 U/L (13-40) 51 U/L (13-40) H Total Bilirubin 1.0 mg/dL (0.2-1.0) 0.9 mg/dL (0.2-1.0) Blood Gas Results Test 12/30/24 23:11 Arterial Blood pH 7.415 (7.350-7.450) FiO2 % 21.0 Assessment/Plan Assessment/Plan # Acute Hypoxic Resp Failure - Titrate Oxygen Down # A-Fibb with RVR - Amio IV - Consider BUBBA # Acute Systolic/Diastolic CHF - Lasix IV # Pulm Edema # NSTEMI-II # RASHEL due to Fluid Overload - Monitor # DM2 with hyperglycemia - A1c - Insulin critical care time 38 mins Plan discussed with: Patient, Spouse, Daughter My Orders Orders - PILO COLLADO MD Procedure Category Date Status Time Insert Koch Catheter SARAI 12/31/24 In Process 15:34 Furosemide Injection PHA 12/31/24 Transmitted (Lasix Injection) 22:00 Hemoglobin A1c LAB 12/31/24 Transmitted 15:55 Ceftriaxone Ivpb PHA 12/31/24 Transmitted Rocephin 16:00 Ceftriaxone Ivpb PHA 01/01/25 Transmitted Rocephin 09:00 Doxycycline Tablet PHA 12/31/24 Transmitted (Vibramycin Tablet) 16:00 Doxycycline Tablet PHA 12/31/24 Transmitted (Vibramycin Tablet) 22:00 Urinalysis LAB 12/31/24 Transmitted 15:55 B-Type Natriuretic LAB 01/01/25 Verified Peptide 04:00 Chest Portable XY 01/01/25 Logged 04:00 Date of Service: Dec 31, 2024 Billing Provider: PILO COLLADO MD Common Visit Codes: [id number] CARE 30-74 MIN PILO COLLADO MD Dec 31, 2024 16:01
[2024-12-31 16:31] LABS: Urine Bacteria None Seen /hpf (None Seen)
[2024-12-31 16:36] LABS: Urine Blood Negative /uL (Negative); Urine Clarity Turbid (Clear); Urine Color Yellow (Yellow); Urine Hyaline Cast MANY /lpf (0 - 2); Urine Protein, UAD Negative (Negative); Urine Squamous Epithelial Cell FEW /hpf (<5); Urine Urobilinogen Normal (Negative); Urine WBC 2 /HPF (0-5)
[2024-12-31] MEDS: DOXYCYCLINE 100 MG TAB/CAP PO ONE (18:00)
[2024-12-31] MEDS: cefTRIAXone 1GM/50ML D5W 50 ML IV ONE (18:00)
[2024-12-31] MEDS: MORPHINE SULFATE INJ 2 MG/ml SYRG IV ONE (18:04)
[2024-12-31] MEDS: IPRATROPIUM BROM 0.5 MG/2.5ML INH SOL NEB SCH (18:16)
[2024-12-31] MEDS: LEVALBUTEROL HCL 1.25 MG/3 ML NEB NEB SCH (18:17)
[2024-12-31] MEDS: ONDANSETRON HCL 4 MG/2 ML VIAL IV PRN (19:54)
--- NOTE | 2024-12-31 20:17 | DVHINCON2 ---
Date Seen: Dec 31, 2024 Referring Physician Dagoberto Reason for Consultation CHF History of Present Illness This is a 79-year-old female with PMH of atrial fibrillation/flutter on Eliquis, CHF, DM, HLD, HTN who presented to the ED with c/o worsening shortness of breath and lower extremity edema. Patient also been having some palpitations and chest tightness. Upon evaluation in the ED patient noted to have significantly eleva miley heart rate, noted to be in atrial flutter on 118 beats per minute. Creatinine 1.39. Troponin trending 48 51, 74. BNP 921. Chest x-ray showed small bilateral pleural effusions, congestion. Of note patient does have history of BUBBA cardioversion in 2021 for atrial fib and flutter and was plan for follow up at [place] for possible ablation. Past Medical History As stated above Past Surgical History As stated above Family History: FH: cancer G8 FATHER FH: diabetes mellitus G8 MOTHER FH: heart failure G8 MOTHER Allergies: Coded Allergies: NO KNOWN ALLERGIES (Unverified , 09/11/22) Home Meds Active Scripts Doxycycline Hyclate (DOXYCYCLINE HYCLATE) 100 Mg Tab, 1 TAB PO BID, #14 TAB Prov:OMAR CONTEH MD 09/14/22 Reported Medications Aspirin (Aspir-81) 81 Mg Tab, 1 TAB PO DAILY, #30 TAB 5 Refills 09/12/22 Apixaban Base (ELIQUIS) 5 Mg Tab, 5 MG PO BID, TAB 09/12/22 Metoprolol Tartrate (Metoprolol Tartrate) 25 Mg Tab, 1 TAB PO BID, #60 TAB 5 Refills 09/12/22 Metformin Hydrochloride (Metformin Hcl Er) 500 Mg Tab, 1 TAB PO BID, #180 TAB 3 Refills 09/12/22 Amiodarone Hcl (Amiodarone Hcl) 200 Mg Tab, 200 MG PO BID, TAB 09/12/22 Current Medications Current Medications Medications (Trade) Dose Ordered Sig/Eduardo Route PRN Reason Start Time Stop Time Status Last Admin Carvedilol (Coreg Tablet) 12.5 mg Q12HR PO 12/31/24 10:00 12/31/24 11:29 DC 12/31/24 09:46 Furosemide (Lasix Injection) 40 mg DAILY IV 12/31/24 10:00 12/31/24 15:58 DC 12/31/24 09:47 Aspirin 81 mg DAILY PO 01/01/25 10:00 Diagnostic Test (Pha) (Accu-Chek Comfort Curve T) 1 strip IQ4HR 12/31/24 04:00 12/31/24 16:03 Insulin Human Regular (InsuLIN R) IQ4HR SC 12/31/24 04:00 12/31/24 12:05 Dextrose 50 ml UD PRN IV Blood Sugar LESS THAN 60 12/31/24 01:30 Sodium Chloride (Saline Lock Ns) 10 ml Q8HR IV 12/31/24 06:00 12/31/24 14:00 Acetaminophen/ Hydrocodone Bitart ([place] 5/325MG Tab) 1 tab Q4HP PRN PO MODERATE PAIN (4-6 PAIN SCALE) 12/31/24 01:30 Ondansetron HCl (Zofran) 4 mg Q4HP PRN IV NAUSEA / VOMITING 12/31/24 01:30 Docusate Sodium (Colace Capsule) 100 mg BIDPRN PRN PO FOR CONSTIPATION 12/31/24 01:30 Acetaminophen (Tylenol Tablet) 650 mg Q6HP PRN PO PAIN SCALE 1-3 OR TEMP>100.4 12/31/24 01:30 Atorvastatin Calcium (Lipitor) 20 mg HS PO 12/31/24 22:00 Nitroglycerin (Ntrostat Sublingual) 0.4 mg Q5MINP PRN SL FOR CHEST PAIN 12/31/24 04:15 Morphine Sulfate 2 mg Q30M PRN IV FOR CHEST PAIN 12/31/24 04:15 Metoprolol Tartrate (Lopressor Tablet) 25 mg BID PO 12/31/24 22:00 Apixaban (Eliquis) 5 mg BID PO 12/31/24 22:00 Furosemide (Lasix Injection) 40 mg BIDD IV 12/31/24 18:00 12/31/24 18:04 Ceftriaxone Sodium 50 ml @ 100 mls/hr DAILY@09 IV 01/01/25 09:00 Doxycycline Monohydrate (Vibramycin Tablet) 100 mg Q12HR PO 01/01/25 10:00 Levalbuterol HCl (Xopenex Medneb) 1.25 mg Q6HR NEB 12/31/24 18:00 12/31/24 18:17 Ipratropium [employer] (Atrovent Medneb) 0.5 mg Q6HR NEB 12/31/24 18:00 12/31/24 18:16 Insulin Human Isoph/Insulin Regular (HumuLIN 70/30) 20 units BID@08,18 SC 12/31/24 18:00 Review of Systems Constitutional: No: Fever, Chills, Sweats, Weakness, , Other positive: Malaise Eyes: No: Pain, Vision change, Conjunctivae inflammation, Eyelid inflammation, Other, Redness ENT: No: Ear pain, Ear discharge, Nose pain, Nose discharge, Nose congestion, Mouth pain, Mouth swelling, Throat pain, Throat swelling, Other Respiratory: No: Cough, Dry, Wheezing, Hemoptysis, Pleuritic Pain, Sputum, Wheezing, Other positive: Shortness of breath, SOB with exertion, Cardiovascular: ; No: Chest Pain , Paroxysmal Noc. Dyspnea, , Lt Headedness, Other positive: Palpitations, edema Gastrointestinal: No: Nausea, Vomiting, Abdominal Pain, Diarrhea, Constipation, Melena, Hematochezia, Other Genitourinary: No Dysuria, No Frequency, No Incontinence, No Hematuria, No Retention, No Other Musculoskeletal: neck pain; No: other, shoulder pain, arm pain, back pain, hand pain, leg pain, foot pain Skin: No: Rash, Lesions, Jaundice, Bruising, Other Neurological: Other (Dizziness, headache.); No: Weakness, Numbness, Incoordination, Change in speech, Confusion, Seizures Vital Signs Vital Signs Date Time Temp Pulse Resp B/P (MAP) Pulse Ox O2 Delivery O2 Flow Rate FiO2 12/31/24 18:27 120 16 98 12/31/24 18:17 Nasal Cannula* 2 28 12/31/24 18:04 114/69 12/31/24 17:00 97.3 97.3 Physical Exam GENERAL: Awake, alert, oriented. LUNGS: Decreased breath sounds. CARDIOVASCULAR: Heart sounds are good. ABDOMEN: Soft. Labs/Diagnostic Data Labs Test 12/31/24 16:36 12/31/24 16:21 12/31/24 16:14 12/31/24 04:55 Range/Units POC Glucose 114 H 70-106 mg/dl Lactic Acid Level 3.0 *H 0.4-2.0 mmol/L Urine Color Yellow Yellow Urine Clarity Turbid H Clear Urine pH 5.0 5.0-9.0 Urine Specific [place] 1.020 1.001-1.035 Urine Protein Negative Negative Urine Ketones Negative Negative Urine Blood Negative Negative /uL Urine Nitrite Negative Negative Urine Bilirubin Negative Negative Urine Urobilinogen Normal Negative mg/dL Urine Leukocyte Esterase Negative Negative /uL Urine RBC 1 0 - 4 /hpf Urine Microscopic WBC 2 0-5 /HPF Urine Squamous Epithelial Cells Few <5 /hpf Urine Bacteria None seen None Seen /hpf Urine Hyaline Casts Many 0 - 2 /lpf Urine Glucose Normal Normal mg/dL White Blood Count 11.0 H 4.4-10.8 10^3/uL Red Blood Count 4.26 4.0-5.20 10^6/uL Hemoglobin 11.8 L 12.2-16.2 g/dL Hematocrit 37.2 36.0-46.0 % Mean Corpuscular Volume 87.3 80.0-100.0 fL Mean Corpuscular Hemoglobin 27.8 L 28.0-32.0 pg Mean Corpuscular Hemoglobin Concent 31.8 L 32.0-36.0 g/dL Red Cell Distribution Width 17.0 H 11.8-14.3 % Platelet Count 251 140-450 10^3/uL Mean Platelet Volume 9.3 6.9-10.8 fL Neutrophils (%) (Auto) 88.8 H 37.0-80.0 % Lymphocytes (%) (Auto) 6.1 L 10.0-50.0 % Monocytes (%) (Auto) 4.9 0.0-12.0 % Eosinophils (%) (Auto) 0.0 0.0-7.0 % Basophils (%) (Auto) 0.2 0.0-2.0 % Neutrophils # (Auto) 9.8 H 1.6-8.6 10 ^3/uL Lymphocytes # (Auto) 0.7 0.4-5.4 10 ^3/uL Monocytes # (Auto) 0.5 0-1.3 10 ^3/uL Eosinophils # (Auto) 0 0-0.8 10 ^3/uL Basophils # (Auto) 0 0-0.2 10 ^3/uL Nucleated Red Blood Cells 0.1 % Sodium Level 136 136-145 mmol/L Potassium Level 4.3 3.5-5.1 mmol/L Chloride Level 104 98-107 mmol/L Carbon Dioxide Level 17 L 20-31 mmol/L Anion Gap 15 5-15 Blood Urea Nitrogen 29 H 9-23 mg/dL Creatinine 1.55 H 0.550-1.02 mg/dL Glomerular Filtration Rate Calc 34 >90 mL/min BUN/Creatinine Ratio 18.7 10.0-20.0 Serum Glucose 309 H 74-106 mg/dL Hemoglobin A1c 6.4 H <5.7 % A1C Calcium Level 9.6 8.7-10.4 mg/dL Total Bilirubin 0.9 0.2-1.0 mg/dL Aspartate Amino Transferase (AST) 51 H 13-40 U/L Alanine Aminotransferase (ALT) 35 7-40 U/L Alkaline Phosphatase 132 H 46-116 U/L Total Protein 7.3 5.7-8.2 g/dL Albumin 4.5 3.2-4.8 g/dL Test 12/31/24 02:41 12/31/24 01:00 12/30/24 23:42 12/30/24 23:11 Range/Units Troponin I High Sensitivity 74 *H </=34 ng/L Influenza Type A Antigen Negative Negative Influenza Type B Antigen Negative Negative SARS-CoV-2 Antigen (Rapid) Negative NEGATIVE D-Dimer, Quantitative 3.05 H 0.0-0.49 mg/L FEU B-Type Natriuretic Peptide 921.72 0-100 pg/mL Blood Gas Specimen Type Arterial Blood Gas Sample Site Right brachial Blood Gas Patient Temperature 37.0 Arterial Blood Date Drawn [id number] Arterial Blood pH 7.415 7.350-7.450 Arterial Blood Partial Pressure CO2 21.9 L 32.0-45.0 mmHg Arterial Blood Partial Pressure O2 68.4 L 83.0-108.0 mmHg Arterial Blood HCO3 13.7 L 21.0-28.0 mmol/L Arterial Blood Oxygen Saturation 91.7 L 94.0-98.0 % Arterial Blood Base Excess -8.9 L -2.0-3.0 mmol/L Arterial Blood Oxyhemoglobin 90.7 L 94.0-98.0 % Arterial Blood Carboxyhemoglobin 0.6 0.5-1.5 % Arterial Blood Methemoglobin 0.5 0.0-1.5 % Coleman Test N/a Blood Gas Total Hemoglobin 12.30 12.0-16.0 g/dL Blood Gas Modality Room air FiO2 % 21.0 Assessment Acute on chronic HFpEF. Acute hypoxic respiratory failure, CHF exacerbation. Mildly elevated troponins. Paroxysmal Atrial Fibrillation/Flutter with episode of RVR. HTN. HLD. RASHEL. Plan/Recommendation I agree with your ongoing assessment and care of plan. Patient has been seen by Radhames Dewitt NP on my behalf, him and I discussed the plan with the patient. Echocardiogram. Continue diuresing, strict I&O. Continue aspirin and statin. Amiodarone drip at 1 milligram/minute continuous. Continue metoprolol 25 mg p.o. twice daily. Continue Eliquis for stroke prophylaxis. Avoid nephrotoxic agents. If heart rate does not improve we will consider possible BUBBA cardioversion. Additional plan as per the hospital course. Plan discussed with: Patient NYHA Physical activity limitations: Class4(Severe)discomfort Date of Service: Dec 31, 2024 Billing Provider: NATHANAEL KRUSE MD Cardiology Common Codes: [id number] INP/OBS CARE (High), [id number] CARE 30-74 MIN NATHANAEL KRUSE MD Dec 31, 2024 20:04
--- NOTE | 2024-12-31 20:30 | DVHSR ---
APPROVED REPORT EXAM: Two-dimensional and M-mode echocardiogram with Doppler and color Doppler. Blood Pressure: 109/70 mmHg INDICATION CHF exacerbation, unspecified. RISK FACTORS Height: 5'8", Weight: 183 DIMENSIONS LVDd5.1 (3.8-5.7cm)LA (2D)4.3 (1.9-4.0cm)Aortic Root3.3 (2.0-3.7cm) LVDs4.8 (2.5-4.0cm)LA (MM) (1.9-4.0cm)Aortic Cusp Exc1.6 (1.5-2.0cm) EF (%) 10.0 (55-70%)Rt. Atrium4.6 (1.9-4.0cm)Asc. Aorta cm IVSd0.8 (0.7-1.1cm)RV (D)3.7 (1.8-2.4cm) PWd1.0 (0.7-1.1cm) Mitral Valve MitralMitral Stenosis E wave1.20m/sMV Mean GR.mmHg E/A ratio0.02D MVAcm2 Aortic Valve Aortic ValveAortic Stenosis V10.40m/Jamila Mean GR.1mmHg V20.75m/Jamila Peak GR.2mmHg LVOT Diameter1.9 (1.8-2.4cm)Doppler AVA1.51cm2 Pulmonic Valve V20.54m/s Tricuspid Valve TR Velocity2.80m/s [id number] Other Information Quality : Rhythm : Tachycardia Technically limited study due to body habitus, patient sitting up. Conclusion DILATED CARDIOMYOPATY SEVERE GLOBAL LV AND RV HYPOKINESIS LV EF IS ONLY 10% CALCIFIED POSTERIOR MV SEVERE MR MILD PULMONARY HYPERTENSION RVSP IS 39 MM OF HG NO EFFUSION
[2024-12-31] MEDS: INSULIN 70/30 1unit/0.01ml Susp (100units/ml) SC SCH (22:00)
[2024-12-31] MEDS: ATORVASTATIN 20 MG TAB PO SCH (22:20)
[2024-12-31] MEDS: APIXABAN 5 MG TAB PO SCH (22:21)
[2024-12-31] MEDS: METOPROLOL TARTRATE 25 MG TAB PO SCH (22:22)
[2025-01-01] VITALS (22 sets, daily range): BP systolic 87–127; BP diastolic 42–88; PULSE 65–107; RESP 12–24; TEMP 97.1–98.2; O2SAT 94–99
[2025-01-01 01:09] LABS: INR 1.33 (0.9-1.15); Partial Thromboplastin Time 32.2 SEC (24.5-34.5); Prothrombin Time 13.7 sec (9.3-11.8)
--- NOTE | 2025-01-01 06:35 | DVH ---
EXAM: XR Chest, 1 View CLINICAL INDICATION: chf TECHNIQUE: Frontal view of the chest. COMPARISON: CHEST PORTABLE on DOS: 09/11/22, CXRP on DOS: 09/11/22 FINDINGS: LUNGS AND PLEURAL SPACES: See below. HEART: Cardiomegaly with pulmonary congestion and edema. Superimposed pneumonia cannot be excluded. MEDIASTINUM: Unremarkable. Normal mediastinal contour. BONES/JOINTS: Unremarkable. No acute fracture. OTHER FINDINGS: . IMPRESSION: Cardiomegaly with pulmonary congestion and edema. Superimposed pneumonia cannot be excluded.
--- NOTE | 2025-01-01 08:01 | ECG ---
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
[2025-01-01 08:15] LABS: Basophils # (auto) 0 10 ^3/uL (0-0.2); Basophils % (auto) 0.3 % (0.0-2.0); Eosinophils # (auto) 0 10 ^3/uL (0-0.8); Eosinophils % (auto) 0.1 % (0.0-7.0); Hematocrit 33.9 % (36.0-46.0); Lymphocytes # (auto) 1.1 10 ^3/uL (0.4-5.4); Lymphocytes % (auto) 9.3 % (10.0-50.0); Mean Corpuscular Hemoglobin 28.1 pg (28.0-32.0); Mean Corpuscular Hgb Conc. 32.3 g/dL (32.0-36.0); Mean Corpuscular Volume 87.1 fL (80.0-100.0); Monocytes % (auto) 8.8 % (0.0-12.0); Neutrophils # (auto) 9.5 10 ^3/uL (1.6-8.6); Neutrophils % (auto) 81.5 % (37.0-80.0); Nucleated Red Blood Cells % 0.1 %; Platelet Count (auto) 203 10^3/uL (140-450); Red Cell Distribution Width 16.8 % (11.8-14.3); White Blood Cell 11.6 10^3/uL (4.4-10.8)
[2025-01-01] MEDS: fentaNYL CITRATE 100 MCG/2 ML VL IV ONE (08:30)
[2025-01-01] MEDS: LIDOCAINE VISCOUS 2% 15ML UD PO ONE (08:30)
[2025-01-01] MEDS: MIDAZOLAM HCL 2MG/2ML 2ml VIAL (1mg/ml) IV ONE (08:30)
[2025-01-01 08:34] LABS: Alanine Aminotransferase 36 U/L (7-40); Alkaline Phosphatase 113 U/L (46-116); Anion Gap 10 (5-15); Aspartate Aminotransferase 37 U/L (13-40); BUN/Creatinine Ratio 19.1 (10.0-20.0); Calcium 9.2 mg/dL (8.7-10.4); Carbon Dioxide 23 mmol/L (20-31); Chloride 105 mmol/L (98-107); Sodium 138 mmol/L (136-145); Total Protein 6.6 g/dL (5.7-8.2)
[2025-01-01 08:35] LABS: Bilirubin, Total 0.7 mg/dL (0.2-1.0)
[2025-01-01 08:39] LABS: Blood Urea Nitrogen 27 mg/dL (9-23); Glucose 138 mg/dL (74-106)
[2025-01-01] MEDS: cefTRIAXone 1GM/50ML D5W 50 ML IV SCH (09:00)
[2025-01-01] MEDS: DIGOXIN (250MCG/ML) 2 ML AMPULE ONE (09:19)
--- NOTE | 2025-01-01 11:09 | DVHOP ---
DATE OF SURGERY: 01/01/2025 TECHNIQUE PERFORMED: Attempt of the electrical cardioversion, management of conscious sedation. ASSISTANTS: Assisted by our staff here is Jovhie and special procedures technologist. INDICATIONS: The patient has atrial fibrillation. The patient needs electrical cardioversion. DESCRIPTION OF PROCEDURE: Risks, benefits discussed with the patient and also discussion done with the patient's daughter and her . In a standard manner, the patient was kept n.p.o., brought to our cardiac catheterization lab. The patient was given IV Versed, fentanyl. The patient also was given the lidocaine viscous. Mouthpiece was placed. Transesophageal probe was passed. We went to the upper part, but the patient is so much agitated and moved her head up and down and side to side, the probe had been discontinued because of underlying significant agitation with the probe. CONCLUSION: The study was not being able to be completed because of the patient's agitation. There is no trauma. There is no complication. Now, we are going to electrical cardioversion. Diya Khan MD MP/NATALIA/LADONNA TID: [id number] RECEIPT: [id number] MTDD
--- NOTE | 2025-01-01 11:18 | DVHOP ---
DATE OF SURGERY: 12/31/2024 TECHNIQUE PERFORMED: * Electrical cardioversion. * Management of conscious sedation. ASSISTANTS: Assisted by the nurse, Nadine. COMPLICATIONS: None. INDICATIONS: Atrial fibrillation did not cardiovert with intravenous amiodarone. DESCRIPTION OF PROCEDURE: The risks and benefits discussed with the patient and the daughter and the . Kept n.p.o. Brought to the lab. We have given the IV Versed and fentanyl was given. Conscious sedation was obtained. The patient's electrical pads were connected to do electrical cardioversion machine. The patient was put on synchronous mode 120 joules synchronized was given. The patient converted to sinus rhythm. CONCLUSION: Successful electrical cardioversion. The patient is now in sinus rhythm. Advised to have amiodarone orally and as tolerated beta-fatuma medicine and she will also need long-term anticoagulation medicine like Eliquis. Diya Khan MD MP/LONI/MADAI TID: [id number] RECEIPT: [id number]
--- NOTE | 2025-01-01 12:10 | DVHPN2 ---
Progress Note - Dictate Date Seen: Jan 01, 2025 Medical Necessity Reason Pt with a Central, PICC or Fol: No Subjective Patient was seen and evaluated in follow up. I attempted electrical cardioversion, management of conscious sedation. The study was not able to be completed because of the patient's agitation. There is no trauma. There is no complication. Patient underwent successful electrical cardioversion. The patient is now in sinus rhythm. Advised to have amiodarone orally and as tolerated beta- fatuma medicine and she will also need long-term anticoagulation medicine like Eliquis. Telemetry reviewed. vital signs Vital Sign Date Time Temp Pulse Resp B/P (MAP) Pulse Ox O2 Delivery O2 Flow Rate FiO2 01/01/25 10:00 97 Nasal Cannula 2.0 01/01/25 10:00 28 01/01/25 09:00 97.9 77 16 100/45 (63) 97.9 Total Intake and Output 12/31/24 12/31/24 01/01/25 15:00 23:00 07:00 Intake Total 550 ml 638 ml Output Total 300 ml 1200 ml Balance 250 ml -562 ml medications Current Medications Medications Dose Ordered Sig/Eduardo Route Start Time Stop Time Status Last Admin Dose Admin Aspirin 81 mg DAILY PO 01/01/25 10:00 Diagnostic Test (Pha) 1 strip IQ4HR 12/31/24 04:00 01/01/25 08:00 1 STRIP Insulin Human Regular IQ4HR SC 12/31/24 04:00 12/31/24 12:05 3 UNITS Dextrose 50 ml UD PRN IV 12/31/24 01:30 Sodium Chloride 10 ml Q8HR IV 12/31/24 06:00 01/01/25 06:39 10 ML Acetaminophen/ Hydrocodone Bitart 1 tab Q4HP PRN PO 12/31/24 01:30 Ondansetron HCl 4 mg Q4HP PRN IV 12/31/24 01:30 12/31/24 19:54 4 MG Docusate Sodium 100 mg BIDPRN PRN PO 12/31/24 01:30 Acetaminophen 650 mg Q6HP PRN PO 12/31/24 01:30 Atorvastatin Calcium 20 mg HS PO 12/31/24 22:00 12/31/24 22:20 20 MG Nitroglycerin 0.4 mg Q5MINP PRN SL 12/31/24 04:15 Morphine Sulfate 2 mg Q30M PRN IV 12/31/24 04:15 Metoprolol Tartrate 25 mg BID PO 12/31/24 22:00 12/31/24 22:22 25 MG Apixaban 5 mg BID PO 12/31/24 22:00 12/31/24 22:21 5 MG Furosemide 40 mg BIDD IV 12/31/24 18:00 01/01/25 06:33 40 MG Ceftriaxone Sodium 50 ml @ 100 mls/hr DAILY@09 IV 01/01/25 09:00 01/01/25 09:00 100 MLS/HR Doxycycline Monohydrate 100 mg Q12HR PO 01/01/25 10:00 Levalbuterol HCl 1.25 mg Q6HR NEB 12/31/24 18:00 12/31/24 23:11 1.25 MG Ipratropium [place] 0.5 mg Q6HR NEB 12/31/24 18:00 01/01/25 07:44 0.5 MG Insulin Human Isoph/Insulin Regular 20 units BID@08,18 SC 12/31/24 18:00 objective GENERAL: Awake, alert, oriented. LUNGS: Decreased breath sounds. CARDIOVASCULAR: Heart sounds are good. ABDOMEN: Soft. laboratory and microbiology Laboratory Tests 01/01/25 07:15 Test 01/01/25 07:15 Range/Units Serum Glucose 138 H 74-106 mg/dL Problem List Acute on chronic HFpEF. Acute hypoxic respiratory failure, CHF exacerbation. Mildly elevated troponins. Paroxysmal Atrial Fibrillation/Flutter with episode of RVR. HTN. HLD. RASHEL. Assessment/Plan Continued all current supportive medical care. Echocardiogram. Morphine and [place] for pain management. Eliquis. Aspirin, Lipitor, Metoprolol. IV antibiotics as ordered. Diuretics with Lasix. Additional plan as per the hospital course. Plan discussed with: Patient NATHANAEL KRUSE MD Jan 01, 2025 12:10
[2025-01-01] MEDS: DOXYCYCLINE 100 MG TAB/CAP PO SCH (13:12)
[2025-01-01] MEDS: ASPirin 81 mg TAB PO SCH (13:12)
--- NOTE | 2025-01-01 14:51 | DVHPN2 ---
Subjective Seen and examined at bedside.Patient is now on 3-4L oxygen. ECHO reviewed. s/p Cardioversion today. Changes from previous H/P or p: No Changes Eyes: No Pain, No Vision change, No Conjunctivae inflammation, No Eyelid inflammation, No Other, No Redness ENT: No Ear pain, No Ear discharge, No Nose pain, No Nose discharge, No Nose congestion, No Mouth pain, No Mouth swelling, No Throat pain, No Throat swelling, No Other Cardiovascular: No Palpitations, No Orthopnea, No Paroxysmal Noc. Dyspnea, No Edema, No Lt Headedness, No Other Respiratory: No Cough, No Dry; Shortness of breath; No SOB with excertion, No Wheezing, No Hemoptysis, No Pleuritic Pain, No Sputum, No Other Gastrointestinal: No Nausea, No Vomiting, No Abdominal Pain, No Diarrhea, No Constipation, No Melena, No Hematochezia, No Other Genitourinary: No Dysuria, No Frequency, No Incontinence, No Hematuria, No Retention, No Other Musculoskeletal: No other, No neck pain, No shoulder pain, No arm pain, No back pain, No hand pain, No leg pain, No foot pain Skin: No Rash, No Lesions, No Jaundice, No Bruising, No Other Objective Vitals Vital Signs Date Time Temp Pulse Resp B/P (MAP) Pulse Ox O2 Delivery O2 Flow Rate FiO2 01/01/25 12:43 98.2 69 15 87/42 (57) 94 98.2 01/01/25 10:00 Nasal Cannula 2.0 01/01/25 10:00 28 Intake/Output Intake and Output 01/01/25 07:00 Intake Total 1188 ml Output Total 1500 ml Balance -312 ml Intake Oral 750 ml IV Total 438 ml Output Urine Total 1500 ml General Appearance: Alert, Oriented X3, Cooperative, moderate distress HEENT: Atraumatic Lungs: Other (Diminished with few creps) Cardiovascular: Other (Irregular, Tachycardic) Abdomen: Normal bowel sounds, Soft Extremities: Other (Edema) Psych/Mental Status: Mental status NL Medications Current Medications Medications Dose Ordered Sig/Eduardo Route Start Time Stop Time Status Last Admin Dose Admin Aspirin 81 mg DAILY PO 01/01/25 10:00 01/01/25 13:12 81 MG Diagnostic Test (Pha) 1 strip IQ4HR 12/31/24 04:00 01/01/25 12:00 1 STRIP Insulin Human Regular IQ4HR SC 12/31/24 04:00 01/01/25 12:00 3 UNITS Dextrose 50 ml UD PRN IV 12/31/24 01:30 Sodium Chloride 10 ml Q8HR IV 12/31/24 06:00 01/01/25 06:39 10 ML Acetaminophen/ Hydrocodone Bitart 1 tab Q4HP PRN PO 12/31/24 01:30 Ondansetron HCl 4 mg Q4HP PRN IV 12/31/24 01:30 12/31/24 19:54 4 MG Docusate Sodium 100 mg BIDPRN PRN PO 12/31/24 01:30 Acetaminophen 650 mg Q6HP PRN PO 12/31/24 01:30 Atorvastatin Calcium 20 mg HS PO 12/31/24 22:00 12/31/24 22:20 20 MG Nitroglycerin 0.4 mg Q5MINP PRN SL 12/31/24 04:15 Morphine Sulfate 2 mg Q30M PRN IV 12/31/24 04:15 Metoprolol Tartrate 25 mg BID PO 12/31/24 22:00 12/31/24 22:22 25 MG Apixaban 5 mg BID PO 12/31/24 22:00 01/01/25 13:12 5 MG Furosemide 40 mg BIDD IV 12/31/24 18:00 01/01/25 06:33 40 MG Ceftriaxone Sodium 50 ml @ 100 mls/hr DAILY@09 IV 01/01/25 09:00 01/01/25 09:00 100 MLS/HR Doxycycline Monohydrate 100 mg Q12HR PO 01/01/25 10:00 01/01/25 13:12 100 MG Levalbuterol HCl 1.25 mg Q6HR NEB 12/31/24 18:00 12/31/24 23:11 1.25 MG Ipratropium Lucas 0.5 mg Q6HR NEB 12/31/24 18:00 01/01/25 07:44 0.5 MG Insulin Human Isoph/Insulin Regular 20 units BID@08,18 SC 12/31/24 18:00 Laboratory Results Laboratory Tests 01/01/25 07:15 Chemistry Test 01/01/25 07:15 Albumin 4.0 g/dL (3.2-4.8) Calcium Level 9.2 mg/dL (8.7-10.4) Total Protein 6.6 g/dL (5.7-8.2) Coagulation Test 01/01/25 00:40 Prothrombin Time 13.7 sec (9.3-11.8) H Prothrombin Time INR 1.33 (0.9-1.15) H Activated Partial Thromboplast Time 32.2 SEC (24.5-34.5) Cardiac Markers Test 01/01/25 07:15 B-Type Natriuretic Peptide 758.49 pg/mL (0-100) LFT Test 01/01/25 07:15 Alanine Aminotransferase (ALT) 36 U/L (7-40) Alkaline Phosphatase 113 U/L (46-116) Aspartate Amino Transferase (AST) 37 U/L (13-40) Total Bilirubin 0.7 mg/dL (0.2-1.0) Urinalysis Test 12/31/24 16:14 Urine Color Yellow (Yellow) Urine Clarity Turbid (Clear) H Urine pH 5.0 (5.0-9.0) Urine Specific [place] 1.020 (1.001-1.035) Urine Protein Negative (Negative) Urine Ketones Negative (Negative) Urine Blood Negative /uL (Negative) Urine Nitrite Negative (Negative) Urine Bilirubin Negative (Negative) Urine Urobilinogen Normal mg/dL (Negative) Urine Leukocyte Esterase Negative /uL (Negative) Urine RBC 1 /hpf (0 - 4) Urine Microscopic WBC 2 /HPF (0-5) Urine Squamous Epithelial Cells Few /hpf (<5) Urine Bacteria None seen /hpf (None Seen) Urine Hyaline Casts Many /lpf (0 - 2) Urine Glucose Normal mg/dL (Normal) Assessment/Plan Assessment/Plan # Acute Hypoxic Resp Failure - Titrate Oxygen Down # A-Fibb with RVR - Amio IV - s/p Cardioversion # Acute Systolic/Diastolic CHF - Bumex IV # Pulm Edema # NSTEMI-II # RASHEL due to Fluid Overload - Monitor # DM2 with hyperglycemia - A1c 6.4 - Insulin critical care time 41 mins Plan discussed with: Patient My Orders Orders - PILO COLLADO MD Procedure Category Date Status Time Insert Koch Catheter SARAI 12/31/24 In Process 15:34 Ceftriaxone 1gm/50ml PHA 01/01/25 In Process D5w (Rocephin) 09:00 Chest Portable XY 3/17/25 Resulted 04:00 Levalbuterol Hcl PHA 12/31/24 In Process (Xopenex Medneb) 18:00 Ipratropium Medneb PHA 12/31/24 In Process (Atrovent Medneb) 18:00 Insulin 70/30 (Human) PHA 12/31/24 In Process (Humulin 70/30) 18:00 Doxycycline Tablet PHA 01/01/25 In Process (Vibramycin Tablet) 10:00 Nm Vq Scan NM 01/01/25 Logged 14:44 Bilat Lower Dvt US 01/01/25 Logged 14:44 Bumetanide Injection PHA 01/01/25 Logged (Bumex Injection) 18:00 Metolazone (Zaroxolyn) PHA 01/02/25 Logged 10:00 Basic Metabolic Panel LAB 01/02/25 Verified 04:00 B-Type Natriuretic LAB 01/02/25 Verified Peptide 04:00 Magnesium LAB 01/02/25 Verified 04:00 Date of Service: Jan 01, 2025 Billing Provider: PILO COLLADO MD Common Visit Codes: [id number] CARE 30-74 MIN PILO COLLADO MD Jan 01, 2025 14:51
--- NOTE | 2025-01-01 15:33 | DVH ---
US BiLat Lower DVT HISTORY: DVT COMPARISON: BI LOWER DVT on DOS: 09/13/22, BLDVT on DOS: 09/13/22 TECHNIQUE: Duplex Doppler evaluation of the deep venous system of the lower extremity from the common femoral veins, superficial femoral vein, great saphenous vein, deep femoral vein, popliteal vein, an d calf veins, including color Doppler and spectral/pulsed waveform analysis, was performed. FINDINGS: Right: - Common femoral vein: Compressible - Deep femoral vein: Compressible - Femoral vein: Compressible - Popliteal vein: Compressible - Posterior tibial vein: Waveforms present - Other: Nothing Left: - Common femoral vein: Compressible - Deep femoral vein: Compressible - Femoral vein: Compressible - Popliteal vein: Compressible - Posterior tibial vein: Waveforms present - Other: Nothing IMPRESSION: No right or left lower extremity deep venous thrombosis.
[2025-01-01] MEDS: BUMETANIDE 2.5mg/10ml (0.25 mg/ml) INJ IV SCH (18:26)
[2025-01-02] VITALS (15 sets, daily range): BP systolic 99–113; BP diastolic 40–63; PULSE 49–110; RESP 16–19; TEMP 97.9–98.9; O2SAT 92–100
[2025-01-02 06:15] LABS: Anion Gap 11 (5-15); Calcium 9.1 mg/dL (8.7-10.4); Carbon Dioxide 23 mmol/L (20-31); Chloride 104 mmol/L (98-107); Potassium 3.6 mmol/L (3.5-5.1); Sodium 138 mmol/L (136-145)
[2025-01-02 06:21] LABS: BUN/Creatinine Ratio 19.7 (10.0-20.0); Glucose 80 mg/dL (74-106)
[2025-01-02 06:22] LABS: Magnesium 2.1 mg/dL (1.6-2.6)
[2025-01-02 06:31] LABS: Blood Urea Nitrogen 31 mg/dL (9-23)
[2025-01-02] MEDS: POTASSIUM CHL 20 Meq TABLET PO ONE (09:15)
[2025-01-02] MEDS: metOLazone 5 MG TAB PO SCH (10:00)
--- NOTE | 2025-01-02 10:46 | CONS ---
Pharmacy Clinical Information: CQM HF (missing ACEI/ARB/ARNI, EBBB, MRA, SGLT2). Patient's blood pressure is currently low, ACEI/ARB/ARNI, EBBB, MRA and SGLT2 might cause the BP to decrease further. Additionally, per cardio avoid nephrotoxic agents due to elevated Scr; ACEI/ARB/ARNI can increase the Scr. Once BP and Scr is stabilized please consider adding them to patient medications at the discretion of the cardiology team. ULISES BRADEN PHARMACIST Jan 02, 2025 10:46
--- NOTE | 2025-01-02 11:19 | ECG ---
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
--- NOTE | 2025-01-02 14:28 | DVH ---
NUCLEAR MEDICINE VENTILATION/PERFUSION LUNG SCAN. INDICATION: PULMONARY EMBOLISM COMPARISON: None TECHNIQUE: Following intravenous demonstration of 4.5 millicuries of technetium 99m MAA, and inhala tion of 5 mCi of Xe 133 scintigrams were obtained in multiple projections of the lungs. FINDINGS: There is normal uptake of radionuclide on both the ventilation and perfusion portions of the examinat ion. No mismatched perfusion defects are demonstrated. Uptake is normally homogeneous. IMPRESSION: Low probability for PE.
--- NOTE | 2025-01-02 15:06 | DVHPN2 ---
Subjective Seen and examined at bedside. Patient is now on 3-4L oxygen. Needs AICD for Tachy bahman syndrome. Will discuss with Dr. Sonya Khan. Changes from previous H/P or p: No Changes Eyes: No Pain, No Vision change, No Conjunctivae inflammation, No Eyelid inflammation, No Other, No Redness ENT: No Ear pain, No Ear discharge, No Nose pain, No Nose discharge, No Nose congestion, No Mouth pain, No Mouth swelling, No Throat pain, No Throat swelling, No Other Cardiovascular: No Palpitations, No Orthopnea, No Paroxysmal Noc. Dyspnea, No Edema, No Lt Headedness, No Other Respiratory: No Cough, No Dry; Shortness of breath; No SOB with excertion, No Wheezing, No Hemoptysis, No Pleuritic Pain, No Sputum, No Other Gastrointestinal: No Nausea, No Vomiting, No Abdominal Pain, No Diarrhea, No Constipation, No Melena, No Hematochezia, No Other Genitourinary: No Dysuria, No Frequency, No Incontinence, No Hematuria, No Retention, No Other Musculoskeletal: No other, No neck pain, No shoulder pain, No arm pain, No back pain, No hand pain, No leg pain, No foot pain Skin: No Rash, No Lesions, No Jaundice, No Bruising, No Other Objective Vitals Vital Signs Date Time Temp Pulse Resp B/P (MAP) Pulse Ox O2 Delivery O2 Flow Rate FiO2 01/02/25 13:00 97.9 49 17 113/40 (64) 92 97.9 01/02/25 11:15 Nasal Cannula* 2 28 Intake/Output Intake and Output 01/02/25 07:00 Intake Total 990 ml Output Total 650 ml Balance 340 ml Intake Oral 940 ml IV Total 50 ml Output Urine Total 650 ml General Appearance: Alert, Oriented X3, Cooperative, moderate distress HEENT: Atraumatic Lungs: Other (Diminished with few creps) Cardiovascular: Other (Irregular, Tachycardic) Abdomen: Normal bowel sounds, Soft Extremities: Other (Edema) Psych/Mental Status: Mental status NL Medications Current Medications Medications Dose Ordered Sig/Eduardo Route Start Time Stop Time Status Last Admin Dose Admin Aspirin 81 mg DAILY PO 01/01/25 10:00 01/01/25 13:12 81 MG Diagnostic Test (Pha) 1 strip IQ4HR 12/31/24 04:00 01/02/25 12:00 1 STRIP Insulin Human Regular IQ4HR SC 12/31/24 04:00 01/01/25 20:00 3 UNITS Dextrose 50 ml UD PRN IV 12/31/24 01:30 Sodium Chloride 10 ml Q8HR IV 12/31/24 06:00 01/02/25 06:00 10 ML Acetaminophen/ Hydrocodone Bitart 1 tab Q4HP PRN PO 12/31/24 01:30 Ondansetron HCl 4 mg Q4HP PRN IV 12/31/24 01:30 01/01/25 18:52 4 MG Docusate Sodium 100 mg BIDPRN PRN PO 12/31/24 01:30 Acetaminophen 650 mg Q6HP PRN PO 12/31/24 01:30 Atorvastatin Calcium 20 mg HS PO 12/31/24 22:00 01/01/25 22:00 20 MG Nitroglycerin 0.4 mg Q5MINP PRN SL 12/31/24 04:15 Morphine Sulfate 2 mg Q30M PRN IV 12/31/24 04:15 Metoprolol Tartrate 25 mg BID PO 12/31/24 22:00 01/01/25 22:00 25 MG Apixaban 5 mg BID PO 12/31/24 22:00 01/01/25 22:00 5 MG Ceftriaxone Sodium 50 ml @ 100 mls/hr DAILY@09 IV 01/01/25 09:00 01/02/25 10:02 100 MLS/HR Doxycycline Monohydrate 100 mg Q12HR PO 01/01/25 10:00 01/01/25 22:00 100 MG Levalbuterol HCl 1.25 mg Q6HR NEB 12/31/24 18:00 01/02/25 11:15 1.25 MG Ipratropium [place] 0.5 mg Q6HR NEB 12/31/24 18:00 01/02/25 11:15 0.5 MG Insulin Human Isoph/Insulin Regular 20 units BID@08,18 SC 12/31/24 18:00 01/01/25 18:30 20 UNITS Bumetanide 2.5 mg BIDD IV 01/01/25 18:00 01/02/25 06:00 2.5 MG Metolazone 5 mg DAILY PO 01/02/25 10:00 Laboratory Results Laboratory Tests 01/01/25 07:15 01/02/25 04:49 Chemistry Test 01/02/25 04:49 Calcium Level 9.1 mg/dL (8.7-10.4) Magnesium Level 2.1 mg/dL (1.6-2.6) Cardiac Markers Test 01/02/25 04:49 B-Type Natriuretic Peptide 1105.85 pg/mL (0-100) Urinalysis Test 12/31/24 16:14 Urine Color Yellow (Yellow) Urine Clarity Turbid (Clear) H Urine pH 5.0 (5.0-9.0) Urine Specific [place] 1.020 (1.001-1.035) Urine Protein Negative (Negative) Urine Ketones Negative (Negative) Urine Blood Negative /uL (Negative) Urine Nitrite Negative (Negative) Urine Bilirubin Negative (Negative) Urine Urobilinogen Normal mg/dL (Negative) Urine Leukocyte Esterase Negative /uL (Negative) Urine RBC 1 /hpf (0 - 4) Urine Microscopic WBC 2 /HPF (0-5) Urine Squamous Epithelial Cells Few /hpf (<5) Urine Bacteria None seen /hpf (None Seen) Urine Hyaline Casts Many /lpf (0 - 2) Urine Glucose Normal mg/dL (Normal) Assessment/Plan Assessment/Plan # Acute Hypoxic Resp Failure - Titrate Oxygen Down # A-Fibb with RVR - Amio IV - s/p Cardioversion - Need AICD # Acute Systolic/Diastolic CHF - Bumex IV # Pulm Edema # NSTEMI-II # RASHEL due to Fluid Overload - Monitor # DM2 with hyperglycemia - A1c 6.4 - Insulin Plan discussed with: Patient My Orders Orders - PILO COLLADO MD Procedure Category Date Status Time Npo (Nothing By DIET 01/02/25 Transmitted Mouth) Diet Breakfast Cardiac DIET 01/02/25 Transmitted Diet-2gna,Lofat,Lochol Lunch Basic Metabolic Panel LAB 01/03/25 Verified 04:00 B-Type Natriuretic LAB 01/03/25 Verified Peptide 04:00 Complete Blood Count LAB 01/03/25 Verified 04:00 Date of Service: Jan 02, 2025 Billing Provider: PILO COLLADO MD Common Visit Codes: [id number] INP/OBS CARE(HIGH) PILO COLLADO MD Jan 02, 2025 15:06
--- NOTE | 2025-01-02 17:10 | ECG ---
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
--- NOTE | 2025-01-02 17:11 | ECG ---
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
--- NOTE | 2025-01-02 17:50 | MEDREC ---
[facility] ASP Intervention Section I [facility] ASP Intervention: Review courses of therapy (PLEASE CONSIDER D/C ANTIBIOTIC(S) IN ABSENCE OF BACTERIAL INFECTION ) RHONA SAAB PHARMACIST Jan 02, 2025 17:50
[2025-01-02] MEDS: POTASSIUM EFFERVESENT TAB 25 MEQ PO ONE (17:58)
--- NOTE | 2025-01-02 22:31 | DVHPN2 ---
Progress Note - Dictate Date Seen: Jan 02, 2025 Medical Necessity Reason Pt with a Central, PICC or Fol: No Subjective Patient was seen and evaluated in follow up. Patient is on 3 LPM NC. The patient is scheduled for LHC and AICD placement tomorrow. Risks and benefits were discussed with the patient. BUN 31, Java Consultant 1.57. Telemetry reviewed. vital signs Vital Sign Date Time Temp Pulse Resp B/P (MAP) Pulse Ox O2 Delivery O2 Flow Rate FiO2 01/02/25 21:43 110 110/62 01/02/25 21:00 98.1 16 98 98.1 01/02/25 20:00 Nasal Cannula* 2 28 Total Intake and Output 01/01/25 01/01/25 01/02/25 15:00 23:00 07:00 Intake Total 50 ml 490 ml 450 ml Output Total 200 ml 450 ml Balance 50 ml 290 ml 0 ml medications Current Medications Medications Dose Ordered Sig/Eduardo Route Start Time Stop Time Status Last Admin Dose Admin Aspirin 81 mg DAILY PO 01/01/25 10:00 01/01/25 13:12 81 MG Diagnostic Test (Pha) 1 strip IQ4HR 12/31/24 04:00 01/02/25 20:24 1 STRIP Insulin Human Regular IQ4HR SC 12/31/24 04:00 01/01/25 20:00 3 UNITS Dextrose 50 ml UD PRN IV 12/31/24 01:30 Sodium Chloride 10 ml Q8HR IV 12/31/24 06:00 01/02/25 20:26 10 ML Acetaminophen/ Hydrocodone Bitart 1 tab Q4HP PRN PO 12/31/24 01:30 Ondansetron HCl 4 mg Q4HP PRN IV 12/31/24 01:30 01/01/25 18:52 4 MG Docusate Sodium 100 mg BIDPRN PRN PO 12/31/24 01:30 Acetaminophen 650 mg Q6HP PRN PO 12/31/24 01:30 Atorvastatin Calcium 20 mg HS PO 12/31/24 22:00 01/02/25 21:43 20 MG Nitroglycerin 0.4 mg Q5MINP PRN SL 12/31/24 04:15 Morphine Sulfate 2 mg Q30M PRN IV 12/31/24 04:15 Metoprolol Tartrate 25 mg BID PO 12/31/24 22:00 01/02/25 21:43 25 MG Ceftriaxone Sodium 50 ml @ 100 mls/hr DAILY@09 IV 01/01/25 09:00 01/02/25 10:02 100 MLS/HR Doxycycline Monohydrate 100 mg Q12HR PO 01/01/25 10:00 01/02/25 21:43 100 MG Levalbuterol HCl 1.25 mg Q6HR NEB 12/31/24 18:00 01/02/25 18:55 1.25 MG Ipratropium [place] 0.5 mg Q6HR NEB 12/31/24 18:00 01/02/25 18:55 0.5 MG Insulin Human Isoph/Insulin Regular 20 units BID@08,18 SC 12/31/24 18:00 01/01/25 18:30 20 UNITS Bumetanide 2.5 mg BIDD IV 01/01/25 18:00 01/02/25 18:01 2.5 MG Metolazone 5 mg DAILY PO 01/02/25 10:00 objective GENERAL: Awake, alert, oriented. LUNGS: Decreased breath sounds. CARDIOVASCULAR: Heart sounds are good. ABDOMEN: Soft. laboratory and microbiology Laboratory Tests 01/02/25 04:49 01/01/25 07:15 Test 01/02/25 04:49 Range/Units Serum Glucose 80 74-106 mg/dL Problem List Acute on chronic HFpEF. Acute hypoxic respiratory failure, CHF exacerbation. Mildly elevated troponins. Paroxysmal Atrial Fibrillation/Flutter with episode of RVR. HTN. HLD. RASHEL. Tachy bahman syndrome. Assessment/Plan Continued all current supportive medical care. Echocardiogram. Morphine and [place] for pain management. Eliquis. Aspirin, Lipitor, Metoprolol. IV antibiotics as ordered. Diuretics with Lasix. Additional plan as per the hospital course. Plan discussed with: Patient NATHANAEL KRUSE MD Jan 02, 2025 22:31
[2025-01-03] VITALS (23 sets, daily range): BP systolic 80–134; BP diastolic 45–68; PULSE 67–130; RESP 14–19; TEMP 97.3–98.3; O2SAT 92–99
[2025-01-03] MEDS: HEPARIN IN NS 1000Units/500mL 1,500 ML ONE (07:13)
[2025-01-03] MEDS: IODIXANOL 320MG/ML 100ML BTL IV ONE ×2 (07:13→08:06)
[2025-01-03 08:00] LABS: Basophils # (auto) 0 10 ^3/uL (0-0.2); Basophils % (auto) 0.4 % (0.0-2.0); Eosinophils # (auto) 0.1 10 ^3/uL (0-0.8); Eosinophils % (auto) 1.4 % (0.0-7.0); Hematocrit 34.9 % (36.0-46.0); Hemoglobin 11.4 g/dL (12.2-16.2); Lymphocytes % (auto) 12.7 % (10.0-50.0); Mean Corpuscular Hemoglobin 28.6 pg (28.0-32.0); Mean Corpuscular Hgb Conc. 32.7 g/dL (32.0-36.0); Mean Corpuscular Volume 87.5 fL (80.0-100.0); Monocytes # (auto) 0.8 10 ^3/uL (0-1.3); Monocytes % (auto) 10.5 % (0.0-12.0); Nucleated Red Blood Cells % 0.1 %; Platelet Count (auto) 198 10^3/uL (140-450); Red Blood Cells 3.99 10^6/uL (4.0-5.20); Red Cell Distribution Width 16.8 % (11.8-14.3)
[2025-01-03] MEDS: HEPARIN SODIUM (PORCINE) 5000 UNITS/ML 1ML VIAL ONE (08:04)
[2025-01-03] MEDS: fentaNYL CITRATE 100 MCG/2 ML VL ONE (08:05)
[2025-01-03] MEDS: VERAPAMIL 2.5MG/ML INJ 2ML VIAL IV ONE (08:05)
[2025-01-03] MEDS: LIDOCAINE 2%HCL (LOCAL ANESTH.) INJ 20ML MDV ONE (08:06)
[2025-01-03] MEDS: MIDAZOLAM HCL 2MG/2ML 2ml VIAL (1mg/ml) ONE (08:06)
[2025-01-03] MEDS: ANGIOMAX 250 MG VIAL IV ONE (08:06)
[2025-01-03 08:07] LABS: Chloride 103 mmol/L (98-107); Sodium 139 mmol/L (136-145)
[2025-01-03 08:08] LABS: Anion Gap 8 (5-15); Calcium 9.3 mg/dL (8.7-10.4); Carbon Dioxide 28 mmol/L (20-31)
[2025-01-03 08:13] LABS: BUN/Creatinine Ratio 19.2 (10.0-20.0)
[2025-01-03 08:16] LABS: Blood Urea Nitrogen 28 mg/dL (9-23); Glucose 109 mg/dL (74-106)
--- NOTE | 2025-01-03 12:47 | ECG ---
[facility], [place] Test Date: 2024-12-30 Test Time: 23:06:28 Pat Name: VIMAL FERMIN Department: ED Room: [facility] A Gender: F Domestic Housekeeper: RAYNA : 1945 Requested By: EUGENIO VALADEZ Order Number: [id number] Reading MD: Roman Waldrop Measurements Intervals [place] Rate: 172 P: 0 ME: 0 QRS: -70 QRSD: 125 T: 117 QT: 287 QTc: 486 Interpretive Statements Wide-QRS tachycardia Ventricular premature complex Left bundle branch block Baseline wander in lead(s) II,III,aVF,V1,V2 Electronically Signed On 01-03-2025 22:29:51 PDT by Roman Waldrop Please click the below link to view image of tracing.
--- NOTE | 2025-01-03 14:06 | DVHDS2 ---
Discharge Summary Date of Admission Dec 31, 2024 at 04:10 Date of Discharge: Jan 04, 2025 Admitting Diagnosis Acute Hypoxic Resp Failure Labs/Diagnostic Data: Laboratory Results Test 01/03/25 07:00 01/02/25 18:04 01/02/25 04:49 01/01/25 07:15 White Blood Count 8.0 10^3/uL (4.4-10.8) Red Blood Count 3.99 10^6/uL (4.0-5.20) Hemoglobin 11.4 g/dL (12.2-16.2) Hematocrit 34.9 % (36.0-46.0) Mean Corpuscular Volume 87.5 fL (80.0-100.0) Mean Corpuscular Hemoglobin 28.6 pg (28.0-32.0) Mean Corpuscular Hemoglobin Concent 32.7 g/dL (32.0-36.0) Red Cell Distribution Width 16.8 % (11.8-14.3) Platelet Count 198 10^3/uL (140-450) Mean Platelet Volume 9.5 fL (6.9-10.8) Neutrophils (%) (Auto) 75.0 % (37.0-80.0) Lymphocytes (%) (Auto) 12.7 % (10.0-50.0) Monocytes (%) (Auto) 10.5 % (0.0-12.0) Eosinophils (%) (Auto) 1.4 % (0.0-7.0) Basophils (%) (Auto) 0.4 % (0.0-2.0) Neutrophils # (Auto) 6.0 10 ^3/uL (1.6-8.6) Lymphocytes # (Auto) 1.0 10 ^3/uL (0.4-5.4) Monocytes # (Auto) 0.8 10 ^3/uL (0-1.3) Eosinophils # (Auto) 0.1 10 ^3/uL (0-0.8) Basophils # (Auto) 0 10 ^3/uL (0-0.2) Nucleated Red Blood Cells 0.1 % Sodium Level 139 mmol/L (136-145) Potassium Level 4.0 mmol/L (3.5-5.1) Chloride Level 103 mmol/L (98-107) Carbon Dioxide Level 28 mmol/L (20-31) Anion Gap 8 (5-15) Blood Urea Nitrogen 28 mg/dL (9-23) Creatinine 1.46 mg/dL (0.550-1.02) Glomerular Filtration Rate Calc 37 mL/min (>90) BUN/Creatinine Ratio 19.2 (10.0-20.0) Serum Glucose 109 mg/dL (74-106) Calcium Level 9.3 mg/dL (8.7-10.4) B-Type Natriuretic Peptide 1242.73 pg/mL (0-100) POC Glucose 93 mg/dl (70-106) Magnesium Level 2.1 mg/dL (1.6-2.6) Lactic Acid Level 1.2 mmol/L (0.4-2.0) Total Bilirubin 0.7 mg/dL (0.2-1.0) Aspartate Amino Transferase (AST) 37 U/L (13-40) Alanine Aminotransferase (ALT) 36 U/L (7-40) Alkaline Phosphatase 113 U/L (46-116) Total Protein 6.6 g/dL (5.7-8.2) Albumin 4.0 g/dL (3.2-4.8) Test 01/01/25 00:40 12/31/24 16:14 12/31/24 04:55 12/31/24 02:41 Prothrombin Time 13.7 sec (9.3-11.8) Prothrombin Time INR 1.33 (0.9-1.15) Activated Partial Thromboplast Time 32.2 SEC (24.5-34.5) Urine Color Yellow (Yellow) Urine Clarity Turbid (Clear) Urine pH 5.0 (5.0-9.0) Urine Specific [place] 1.020 (1.001-1.035) Urine Protein Negative (Negative) Urine Ketones Negative (Negative) Urine Blood Negative /uL (Negative) Urine Nitrite Negative (Negative) Urine Bilirubin Negative (Negative) Urine Urobilinogen Normal mg/dL (Negative) Urine Leukocyte Esterase Negative /uL (Negative) Urine RBC 1 /hpf (0 - 4) Urine Microscopic WBC 2 /HPF (0-5) Urine Squamous Epithelial Cells Few /hpf (<5) Urine Bacteria None seen /hpf (None Seen) Urine Hyaline Casts Many /lpf (0 - 2) Urine Glucose Normal mg/dL (Normal) Hemoglobin A1c 6.4 % A1C (<5.7) Troponin I High Sensitivity 74 ng/L (</=34) Test 12/31/24 01:00 12/30/24 23:42 12/30/24 23:11 Influenza Type A Antigen Negative (Negative) Influenza Type B Antigen Negative (Negative) SARS-CoV-2 Antigen (Rapid) Negative (NEGATIVE) D-Dimer, Quantitative 3.05 mg/L FEU (0.0-0.49) Blood Gas Specimen Type Arterial Blood Gas Sample Site Right brachial Blood Gas Patient Temperature 37.0 Arterial Blood Date Drawn [id number] Arterial Blood pH 7.415 (7.350-7.450) Arterial Blood Partial Pressure CO2 21.9 mmHg (32.0-45.0) Arterial Blood Partial Pressure O2 68.4 mmHg (83.0-108.0) Arterial Blood HCO3 13.7 mmol/L (21.0-28.0) Arterial Blood Oxygen Saturation 91.7 % (94.0-98.0) Arterial Blood Base Excess -8.9 mmol/L (-2.0-3.0) Arterial Blood Oxyhemoglobin 90.7 % (94.0-98.0) Arterial Blood Carboxyhemoglobin 0.6 % (0.5-1.5) Arterial Blood Methemoglobin 0.5 % (0.0-1.5) Coleman Test N/a Blood Gas Total Hemoglobin 12.30 g/dL (12.0-16.0) Blood Gas Modality Room air FiO2 % 21.0 Other Laboratory Tests 01/03/25 07:00 Brief Hx & Hospital Course: 79-year-old female with PMH for atrial fibrillation/flutter on Eliquis, CHF, dm, HLD, HTN presents to the hospital with worsening shortness of breath and lower extremity edema. Patient also been having some palpitations and chest tightness. Upon evaluation in the ER patient noted to have significantly elevated heart rate, noted to be in atrial flutter on 118 beats per minute. Patients EF is 10%, patient was on 5L oxygen. Does not use home oxygen. Patient underwent Cardioversion and LHC. Patient needs to be transferred to [place] for EP studies for Tachybrady syndrome. Condition at Discharge: Poor Final Diagnosis/Problems List # Acute Hypoxic Resp Failure - Titrate Oxygen Down # A-Fibb with RVR - Amio - s/p Cardioversion - Need AICD # Acute Systolic/Diastolic CHF - Bumex # Pulm Edema # NSTEMI-II # RASHEL due to Fluid Overload - Monitor # DM2 with hyperglycemia - A1c 6.4 - Insulin Discharge Disposition: Acute Care Facility Discharge Instruct/Medications Diet: Cardiac 2g Na,low cholest (2 gm sodium, low cholesterol) Activity: Light activity Follow Up/Referral: [place] Medications: See [facility] Discharge Statement: "Patient was advised to return to the ER or call 911 if any headaches, dizziness, shortness of breath, chest pain, abdominal pain, bleeding, fevers, or worsening of medical condition. Patient was counseled about treatment plan, medications, possible side effects, patientverbalized understanding. All questions were answered to the best of my ability. This discharge took greater then 30 minutes in planning, reviewing documentation, counseling the patient, and discussing with other team members." ASSESSMENT ASSESSMENT Assessment Date of Service: Jan 03, 2025 Billing Provider: PILO COLLADO MD Common Visit Codes: [id number] DISCH DAY >30min PILO COLLADO MD Jan 03, 2025 14:06
--- NOTE | 2025-01-03 20:04 | DVHPN2 ---
Progress Note - Dictate Date Seen: Jan 03, 2025 Medical Necessity Reason Pt with a Central, PICC or Fol: No Subjective Patient was seen and evaluated in follow up. Patient is on 2 LPM NC. Patient underwent heart cath. Patient is scheduled for PPM placement on Friday 01/05. BUN 28, DRAWER IN 1.46. Telemetry reviewed. vital signs Vital Sign Date Time Temp Pulse Resp B/P (MAP) Pulse Ox O2 Delivery O2 Flow Rate FiO2 01/03/25 11:04 100 15 110/56 (74) 99 01/03/25 10:05 97.6 97.6 01/03/25 10:00 Nasal Cannula* 2 28 Total Intake and Output 01/02/25 01/02/25 01/03/25 15:00 23:00 07:00 Intake Total 50 ml 340 ml 100 ml Output Total 500 ml 2600 ml Balance 50 ml -160 ml -2500 ml medications Current Medications Medications Dose Ordered Sig/Eduardo Route Start Time Stop Time Status Last Admin Dose Admin Aspirin 81 mg DAILY PO 01/01/25 10:00 01/01/25 13:12 81 MG Diagnostic Test (Pha) 1 strip IQ4HR 12/31/24 04:00 01/03/25 11:51 1 STRIP Insulin Human Regular IQ4HR SC 12/31/24 04:00 01/01/25 20:00 3 UNITS Dextrose 50 ml UD PRN IV 12/31/24 01:30 Sodium Chloride 10 ml Q8HR IV 12/31/24 06:00 01/03/25 05:36 10 ML Acetaminophen/ Hydrocodone Bitart 1 tab Q4HP PRN PO 12/31/24 01:30 Ondansetron HCl 4 mg Q4HP PRN IV 12/31/24 01:30 01/01/25 18:52 4 MG Docusate Sodium 100 mg BIDPRN PRN PO 12/31/24 01:30 Acetaminophen 650 mg Q6HP PRN PO 12/31/24 01:30 Atorvastatin Calcium 20 mg HS PO 12/31/24 22:00 01/02/25 21:43 20 MG Nitroglycerin 0.4 mg Q5MINP PRN SL 12/31/24 04:15 Morphine Sulfate 2 mg Q30M PRN IV 12/31/24 04:15 Metoprolol Tartrate 25 mg BID PO 12/31/24 22:00 01/02/25 21:43 25 MG Ceftriaxone Sodium 50 ml @ 100 mls/hr DAILY@09 IV 01/01/25 09:00 01/02/25 10:02 100 MLS/HR Doxycycline Monohydrate 100 mg Q12HR PO 01/01/25 10:00 01/03/25 11:50 100 MG Levalbuterol HCl 1.25 mg Q6HR NEB 12/31/24 18:00 01/03/25 07:08 1.25 MG Ipratropium [place] 0.5 mg Q6HR NEB 12/31/24 18:00 01/03/25 07:08 0.5 MG Insulin Human Isoph/Insulin Regular 20 units BID@08,18 SC 12/31/24 18:00 01/01/25 18:30 20 UNITS Bumetanide 2.5 mg BIDD IV 01/01/25 18:00 01/02/25 18:01 2.5 MG Metolazone 5 mg DAILY PO 01/02/25 10:00 objective GENERAL: Awake, alert, oriented. LUNGS: Decreased breath sounds. CARDIOVASCULAR: Heart sounds are good. ABDOMEN: Soft. laboratory and microbiology Laboratory Tests 01/03/25 07:00 Test 01/03/25 07:00 Range/Units Serum Glucose 109 H 74-106 mg/dL Problem List Acute on chronic HFpEF. Acute hypoxic respiratory failure, CHF exacerbation. Mildly elevated troponins. Paroxysmal Atrial Fibrillation/Flutter with episode of RVR. HTN. HLD. RASHEL. Tachy bahman syndrome. Assessment/Plan Continued all current supportive medical care. Echocardiogram. Morphine and [place] for pain management. Eliquis. Aspirin, Lipitor, Metoprolol. IV antibiotics as ordered. Diuretics with Lasix. Additional plan as per the hospital course. Plan discussed with: Patient NATHANAEL KRUSE MD Jan 03, 2025 14:03
[2025-01-04] VITALS (8 sets, daily range): BP systolic 93–119; BP diastolic 52–84; PULSE 54–132; RESP 16–20; TEMP 97.9–98.4; O2SAT 98–100
--- NOTE | 2025-01-04 06:51 | DVHOP ---
DATE OF SURGERY: 01/03/2025 TECHNIQUE PERFORMED: * Ultrasound of the right radial artery. * Insertion of a 6-[place] arterial line from right femoral artery. * Left heart cath and left ventriculogram. * [place] selective left and right coronary artery angiography. * Arteriotomy, Angio-Seal of the right femoral artery. COMPLICATIONS: None. SOLAR INSTALLER PV: Assisted by Theo Abdi Janice. INDICATIONS: The patient has underlying cardiomyopathy, ejection fraction is quite low in the range of 10%. The patient has coronary artery disease. DESCRIPTION OF PROCEDURE: The risks and benefits discussed. In the standard manner, the patient's right radial area was thoroughly cleaned with soap and Betadine. Lidocaine was given. Ultrasound was done and the artery was extremely small, so I have and then we went from the right groin and able to obtain the right femoral line very well after using lidocaine. A 6-[place] arterial line was placed. With the help of JL4, left heart cath had been done. The left ventricle was done utilizing oblique view with total of 20 mL dye. Post-LV gram, left ventriculography was performed with the help of pull-through technique, aortic pressure also performed. Pigtail catheter also had been discontinued. Procedure completed. There were no complications. IMPRESSION: * Normal left main. * Left anterior descending artery widely open and normal. * Circumflex is also normal. * Right coronary artery is a nondominant artery and is normal. * Ejection fraction in the range of 10%, dilated left ventricle, severe global hypokinesis. CONCLUSION: * The study has revealed major left ventricular systolic dysfunction. * Normal coronary arteries. PLAN OF ACTION: Advised for conservative medical treatment at this time. The patient will qualify to have implantable cardioverter defibrillator which is planned for tomorrow. Diya Khan MD MP/LONI/MADAI/GUI TID: [id number] RECEIPT: [id number] [facility]ITAL[facility]incen[facility]
--- NOTE | 2025-01-04 10:51 | ECG ---
[facility] Test Date: 2024-12-31 Test Time: 03:03:39 Pat Name: VIMAL FERMIN Department: ER Room: [facility]T A Gender: F Staff Pharmacist: YARELI : 1945 Requested By: EUGENIO VALADEZ Order Number: [id number] Reading MD: Roman Waldrop Measurements Intervals [place] Rate: 118 P: 0 FL: 0 QRS: -50 QRSD: 134 T: 136 QT: 380 QTc: 533 Interpretive Statements Atrial fibrillation Left bundle branch block Electronically Signed On 01-06-2025 17:19:29 PDT by Roman Waldrop Please click the below link to view image of tracing.
--- NOTE | 2025-01-04 18:15 | DVHPN2 ---
Subjective For transfer to [place]. Changes from previous H/P or p: No Changes Eyes: No Pain, No Vision change, No Conjunctivae inflammation, No Eyelid inflammation, No Other, No Redness ENT: No Ear pain, No Ear discharge, No Nose pain, No Nose discharge, No Nose congestion, No Mouth pain, No Mouth swelling, No Throat pain, No Throat swelling, No Other Cardiovascular: No Palpitations, No Orthopnea, No Paroxysmal Noc. Dyspnea, No Edema, No Lt Headedness, No Other Respiratory: No Cough, No Dry; Shortness of breath; No SOB with excertion, No Wheezing, No Hemoptysis, No Pleuritic Pain, No Sputum, No Other Gastrointestinal: No Nausea, No Vomiting, No Abdominal Pain, No Diarrhea, No Constipation, No Melena, No Hematochezia, No Other Genitourinary: No Dysuria, No Frequency, No Incontinence, No Hematuria, No Retention, No Other Musculoskeletal: No other, No neck pain, No shoulder pain, No arm pain, No back pain, No hand pain, No leg pain, No foot pain Skin: No Rash, No Lesions, No Jaundice, No Bruising, No Other Objective Vitals Vital Signs Date Time Temp Pulse Resp B/P (MAP) Pulse Ox O2 Delivery O2 Flow Rate FiO2 01/04/25 12:30 98.4 118 16 94/84 (87) 100 98.4 01/04/25 11:45 Nasal Cannula 2.0 01/04/25 11:45 28 Intake/Output Intake and Output 01/04/25 06:59 Intake Total 528 ml Output Total 2900 ml Balance -2372 ml Intake Oral 528 ml Output Urine Total 2900 ml # Bowel Movements 1 General Appearance: Alert, Oriented X3, Cooperative, moderate distress HEENT: Atraumatic Lungs: Other (Diminished with few creps) Cardiovascular: Other (Irregular, Tachycardic) Abdomen: Normal bowel sounds, Soft Extremities: Other (Edema) Psych/Mental Status: Mental status NL Laboratory Results Laboratory Tests 01/03/25 07:00 Urinalysis Test 12/31/24 16:14 Urine Color Yellow (Yellow) Urine Clarity Turbid (Clear) H Urine pH 5.0 (5.0-9.0) Urine Specific [place] 1.020 (1.001-1.035) Urine Protein Negative (Negative) Urine Ketones Negative (Negative) Urine Blood Negative /uL (Negative) Urine Nitrite Negative (Negative) Urine Bilirubin Negative (Negative) Urine Urobilinogen Normal mg/dL (Negative) Urine Leukocyte Esterase Negative /uL (Negative) Urine RBC 1 /hpf (0 - 4) Urine Microscopic WBC 2 /HPF (0-5) Urine Squamous Epithelial Cells Few /hpf (<5) Urine Bacteria None seen /hpf (None Seen) Urine Hyaline Casts Many /lpf (0 - 2) Urine Glucose Normal mg/dL (Normal) Assessment/Plan Assessment/Plan # Acute Hypoxic Resp Failure - Titrate Oxygen Down # A-Fibb with RVR - Amio IV - s/p Cardioversion - Need AICD # Acute Systolic/Diastolic CHF - Bumex IV # Pulm Edema # NSTEMI-II # RASHEL due to Fluid Overload - Monitor # DM2 with hyperglycemia - A1c 6.4 - Insulin Plan discussed with: Other Date of Service: Jan 04, 2025 Billing Provider: PILO COLLADO MD Common Visit Codes: [id number] INP/OBS CARE(LOW) PILO COLLADO MD Jan 04, 2025 18:15
--- NOTE | 2025-01-04 23:37 | DVHPN2 ---
Progress Note - Dictate Date Seen: Jan 04, 2025 Medical Necessity Reason Pt with a Central, PICC or Fol: No Subjective Patient was seen and evaluated in follow up. Patient is on 2 LPM NC. Patient underwent left heart cath, [place] selective left and right coronary artery angiography. Left anterior descending artery widely open and normal. Circumflex is also normal. Right coronary artery is a nondominant artery and is normal. Ejection fraction in the range of 10%, dilated left ventricle, severe global hypokinesis. The study has revealed major left ventricular systolic dysfunction. Normal coronary arteries. Advised for conservative medical treatment at this time. The patient will qualify to have implantable cardioverter defibrillator which is planned for tomorrow. Patient is being arranged for transfer to [place]. Telemetry reviewed. vital signs Vital Sign Date Time Temp Pulse Resp B/P (MAP) Pulse Ox O2 Delivery O2 Flow Rate FiO2 01/04/25 11:51 122 20 98 01/04/25 11:45 Nasal Cannula 2.0 01/04/25 11:45 28 01/04/25 09:00 98.0 119/68 (85) 98.0 Total Intake and Output 01/03/25 01/03/25 01/04/25 15:00 23:00 07:00 Intake Total 418 ml 110 ml Output Total 600 ml 2300 ml Balance -182 ml -2190 ml medications Current Medications Medications Dose Ordered Sig/Eduardo Route Start Time Stop Time Status Last Admin Dose Admin Aspirin 81 mg DAILY PO 01/01/25 10:00 01/04/25 08:57 81 MG Diagnostic Test (Pha) 1 strip IQ4HR 12/31/24 04:00 01/04/25 12:04 1 STRIP Insulin Human Regular IQ4HR SC 12/31/24 04:00 01/04/25 09:02 3 UNITS Dextrose 50 ml UD PRN IV 12/31/24 01:30 Sodium Chloride 10 ml Q8HR IV 12/31/24 06:00 01/04/25 05:28 10 ML Acetaminophen/ Hydrocodone Bitart 1 tab Q4HP PRN PO 12/31/24 01:30 Ondansetron HCl 4 mg Q4HP PRN IV 12/31/24 01:30 01/04/25 09:40 4 MG Docusate Sodium 100 mg BIDPRN PRN PO 12/31/24 01:30 Acetaminophen 650 mg Q6HP PRN PO 12/31/24 01:30 Atorvastatin Calcium 20 mg HS PO 12/31/24 22:00 01/03/25 21:10 20 MG Nitroglycerin 0.4 mg Q5MINP PRN SL 12/31/24 04:15 Morphine Sulfate 2 mg Q30M PRN IV 12/31/24 04:15 Metoprolol Tartrate 25 mg BID PO 12/31/24 22:00 01/04/25 08:58 25 MG Ceftriaxone Sodium 50 ml @ 100 mls/hr DAILY@09 IV 01/01/25 09:00 01/04/25 08:44 100 MLS/HR Doxycycline Monohydrate 100 mg Q12HR PO 01/01/25 10:00 01/04/25 10:09 100 MG Levalbuterol HCl 1.25 mg Q6HR NEB 12/31/24 18:00 01/04/25 11:45 1.25 MG Ipratropium [place] 0.5 mg Q6HR NEB 12/31/24 18:00 01/04/25 11:45 0.5 MG Insulin Human Isoph/Insulin Regular 20 units BID@08,18 SC 12/31/24 18:00 01/01/25 18:30 20 UNITS Bumetanide 2.5 mg BIDD IV 01/01/25 18:00 01/04/25 05:24 2.5 MG Metolazone 5 mg DAILY PO 01/02/25 10:00 01/04/25 08:57 5 MG objective GENERAL: Awake, alert, oriented. LUNGS: Decreased breath sounds. CARDIOVASCULAR: Heart sounds are good. ABDOMEN: Soft. laboratory and microbiology Laboratory Tests 01/03/25 07:00 Test 01/03/25 07:00 Range/Units Serum Glucose 109 H 74-106 mg/dL Problem List Acute on chronic HFpEF. Acute hypoxic respiratory failure, CHF exacerbation. Mildly elevated troponins. Paroxysmal Atrial Fibrillation/Flutter with episode of RVR. HTN. HLD. RASHEL. Tachy bahman syndrome. Assessment/Plan Continued all current supportive medical care. Morphine and [place] for pain management. Eliquis. Aspirin, Lipitor, Metoprolol. IV antibiotics as ordered. Diuretics with Lasix. Additional plan as per the hospital course. Plan discussed with: Patient NATHANAEL KRUSE MD Jan 04, 2025 12:43
== END 2025-01-04 12:30 | disposition short-term general hospital (02) | DRG 280 ==
LOC: EDBD 22:49 → ER 22:56 → EDBD 22:56 → EDUNIT# 22:56 → OVERFLOW 12-31 04:10 → TELE-WESTW 12-31 06:03
PROVIDERS: ADMIT Internal Medicine; ATTEND Internal Medicine
PROC: 5A2204Z Restoration of Cardiac Rhythm, Single (ICD-10-PCS; principal; 2024-12-31)
PROC: 4A023N7 Measurement of Cardiac Sampling and Pressure, Left Heart, Percutaneous Approach (ICD-10-PCS; 2025-01-03)
PROC: B2151ZZ Fluoroscopy of Left Heart using Low Osmolar Contrast (ICD-10-PCS; 2025-01-03)
PROC: B2111ZZ Fluoroscopy of Multiple Coronary Arteries using Low Osmolar Contrast (ICD-10-PCS; 2025-01-03)
PROC: 03HY32Z Insertion of Monitoring Device into Upper Artery, Percutaneous Approach (ICD-10-PCS; 2025-01-03)
DX: I11.0 Hypertensive heart disease with heart failure (principal); I50.41 Acute combined systolic (congestive) and diastolic (congestive) heart failure; I21.A1 Myocardial infarction type 2; J96.01 Acute respiratory failure with hypoxia; I48.92 Unspecified atrial flutter; N17.9 Acute kidney failure, unspecified; Z20.822 Contact with and (suspected) exposure to COVID-19; I48.0 Paroxysmal atrial fibrillation; E78.5 Hyperlipidemia, unspecified; I49.5 Sick sinus syndrome; E11.65 Type 2 diabetes mellitus with hyperglycemia; I25.10 Atherosclerotic heart disease of native coronary artery without angina pectoris; Z79.899 Other long term (current) drug therapy; Z79.01 Long term (current) use of anticoagulants; Z82.49 Family history of ischemic heart disease and other diseases of the circulatory system; Z83.3 Family history of diabetes mellitus
CPT/HCPCS: 36415; 36600; 71045; 78582; 80048; 80053; 81001; 82805; 82962; 83036; 83605; 83735; 83880; 84484; 85025; 85379; 85610; 85730; 86850; 86870; 86900; 86901; 87426; 87804; 92961; 93005; 93306; 93458; 93970; 94640; 96374; 96375; 99152; 99291; G0378; J1815; J2250; J2405; Q9967